=== PATIENT | male | born 1935 | race Caucasian/White ===

== ENCOUNTER 2016-09-03 00:09 | Inpatient (IN) | payer MEDICARE, BC ==
[~2016-09-03] VITALS: Ht 170.2 cm; Wt 116.7 kg
--- NOTE | ~2016-09-03 | CON ---
PATIENT'S NAME: WINTER DYE [facility] AGE: 81 Y [address] ROOM: G6306 [place], [place] [address] LOCATION: GPCU ADMIT DATE: 09/03/2016 Consultation DISCHARGE DATE: FAMILY PHYSICIAN: Cain Burch MD ATTENDING PHYSICIAN: LES PACKER DATE OF CONSULTATION: 09/03/2016 REFERRING PHYSICIAN: Nena Cuevas MD REASON FOR CONSULTATION: LLOYD on CKD. 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 Shin once in the past, refused left nephrectomy, baseline creatinine in April 2015 around 1.7 range, but more recently in 1.9 to 2.1, admitted recently with an obstructive episode in August 2016, status post left ureteral stent placement, now admitted with atypical chest pain and mild shortness of breath. Creatinine on admission was 2.4. Nephrology consultation has been called for LLOYD on CKD. As mentioned above, the creatinine of this patient was 1.7 till April 2016, at that time, he had obstructive episode, creatinine went up to 7.9, after which, the patient started to improve. The last creatinine before discharge in July 2016 was 2.4, and the last creatinine, which was done yesterday at outside facility was 2.4. The patient was subsequently started with some IV fluid because of possible dehydration and also possible need for left heart catheterization for GLORIA prophylaxis. Creatinine today is 2.1, urine output is reasonable, although has not been properly documented in the chart. He currently denies any significant chest pain; however, the pain was there and started day before yesterday, which was nonexertional, radiated to his left shoulder, kind of sharp in intensity, and substernal in location. He went for the stress test today this morning; however, the second part of the stress test is still pending, and plan for cardiac cath if the stress test is relatively abnormal. Regarding genitourinary system, he is completely asymptomatic. He denied any urinary urgency, frequency, hesitancy, or dysuria. He had a ureteral stent placed by Dr. Cesar on the last admission when he had this obstructive episode, and since then, he had never seen Dr. Johnson or Dr. Cesar. However, he said that he is making good amount of urine at home, however, has no other issues. REVIEW OF SYSTEMS: GENERAL: No fever. No chills or rigor. HEENT: No sore throat. No sinus congestion. CVS: The patient complained of chest pain, which was substernal in origin, sometimes radiating to the left shoulder, nonexertional, currently almost pain free. No complaint of shortness of breath. No exertional dyspnea. No orthopnea, PND, or palpitation. RESPIRATORY: No shortness of breath. No cough. No wheezing. GENITOURINARY: No pain with urination. No increased frequency. No nocturia. GASTROINTESTINAL: No abdominal pain. No abdominal distention. No nausea or vomiting. NEUROLOGIC: No weakness. No seizures. SKIN: No rash. No itching. ALLERGIES: No seasonal allergy. No hayfever. ENDOCRINE: No heat intolerance. No cold intolerance. PSYCHIATRIC: No sadness. No crying spells. No history of panic attack. 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 Shin once. PAST SURGICAL HISTORY: As listed above including right nephrectomy. FAMILY HISTORY: Mother had diabetes but no significant history of renal disease or dialysis in the family. SOCIAL HISTORY: Chronic smoker for at least 40 years. He used to smoke a pack a day, now half a pack a day currently. Denies any alcohol or significant IV drug abuse. CURRENT MEDICATIONS: 1. Heparin IV per protocol. 2. Normal saline at rate of 75 mL/h. 3. Aspirin 81 mg p.o. daily. 4. Lipitor 80 mg p.o. q.h.s. 5. Mucomyst 1200 mg p.o. b.i.d. 6. NicoDerm patch 21 mg transcutaneous daily. 7. Morphine 1 to 2 mg IV q.3 hours p.r.n. for pain. 8. Zofran 4 mg IV q.6 hours p.r.n. for pain. 9. Heparin 5000 units subcutaneously. PHYSICAL EXAMINATION: VITAL SIGNS: Blood pressure 156/78, respiratory rate 16, pulse 95, afebrile, saturating at 96% on 2 L of nasal cannula. GENERAL: Not in apparent distress. HEAD: Moist mucous membranes. Bilateral PERRLA, EOMI. NECK: No JVD, thyromegaly or lymphadenopathy. CVS: S1 and S2 normal, regular rate and rhythm. No murmur, rub, gallop. CHEST: Bilateral air entry equal. No wheeze or rales. ABDOMEN: Soft, nontender, nondistended. Bowel sounds present. EXTREMITIES: No cyanosis, clubbing, jaundice. No dependent edema. MUSCULOSKELETAL: No limitation of range of motion. SKIN: No pallor, cyanosis, icterus. CLOTHES DRIER REPAIRER: Alert and oriented x3. No gross findings. PATIENT'S NAME: WINTER DYE [facility] AGE: 81 Y [address] ROOM: [place] [address] LOCATION: GPCU ADMIT DATE: 09/03/2016 Consultation DISCHARGE DATE: FAMILY PHYSICIAN: Cain Burch MD ATTENDING PHYSICIAN: LES PACKER LABORATORY DATA: Troponin 0.261 to 0.491, CPK 108 to 129. CBC: WBC 6.2, hemoglobin 14.4, platelet 168. Chemistry: Sodium 139, potassium 4.4, chloride 105, bicarb 24, BUN 36, creatinine 2.1, calcium 8, glucose 121, magnesium 2.3. GFR 31. Lipid panel: Triglyceride 239, cholesterol 150, HDL 47, LDL 56. PTT 34, INR 1, PT 10. UA: Specific gravity 1.015, pH 6, leukocyte 100, negative nitrite, trace protein, glucose negative, ketone negative, urobilinogen negative, bilirubin negative, 250 blood, wbc 2 to 5, few bacteria. Urine osmolality 609. CK-MB 2.1 to 2.8. ASSESSMENT AND PLAN: 1. 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 Creatinine at baseline was 1.7 till April 2016, however, after obstructive episode, the creatinine never reached back to his baseline. Last creatinine before discharge was 2.4, which was same as yesterday. However, the patient has reported that his intermediate creatinine at his hometown was 1.92. Creatinine came down slightly with volume expansion since yesterday, now it is 2.1. The patient is making good amount of urine. No urinary symptoms. However, with history of obstruction in the past and solitary kidney and left ureteral stent, we will get an ultrasound to rule out any obstructive etiology. 2. Atypical chest pain. The patient is getting a stress test today. We will plan for cardiac cath if the stress test is abnormal. If we plan for cardiac cath, we will give sodium bicarb 3 mL/kg about 350 mL 3 hours prior to the procedure. We have already started Mucomyst 1200 mg p.o. b.i.d. for 4 doses with one dose preprocedure. As per the Usshil risk score, the risk for getting contrast-induced nephropathy for his profile is about 15% with a risk of dialysis about 1% to 2%. Sushil risk score is not properly substantiated or evident as best, but this is the best score we have at this point for predicting contrast-induced nephropathy in the patients with chronic kidney disease. 3. Renal cell carcinoma, status post right nephrectomy, still has a left renal mass with left renal vein invasion, has seen Dr. Shin once. He refused nephrectomy before, however, does not want to see Dr. Shin again. The patient has been encouraged to follow up with an oncologist for his left renal mass. If there is any obstruction in the renal ultrasound or increase in the left- sided hydronephrosis, the patient needs an urgent urology consultation for removal of the left ureteral stent and replacing it with a new stent. It is important as the patient has profoundly infiltrated kidney and if the patient already has significantly advanced chronic kidney disease from prior baseline. Thank you for allowing me to participate in this patient's care. We will closely monitor the patient's progress along with you. CAILIN REESE MD /alejandral /[id number] d: 09/03/[id number] t: 09/08/16 1629, CONSULTATION REPORT
--- NOTE | ~2016-09-03 | ESTC ---
Cardiac Perfusion Imaging Demographics Patient Name HARDIK Kaur Gender Male Patient Number [id number] Race Visit Number [id number] Ethnicity Corporate ID Room Number G6306 Accession Number [id number] Height 67 inches Date of 1935 Weight 268 pounds Interpreting Mason Barrett Date of study 09/03/2016 Physician CNC Supervising /SANDEEP Martinez APRN NM Technologist Ordering Physician Mason Barrett Stress Larry Alcala MD instrument room technician RDCS, RVT Stress ECG Reading Dilip Martinez APRN Nurse Roxann Cardoza RN Physician Procedure Procedure Type: Nuclear Stress Test:Cardiolite Stress Test Procedure Start time: 09/03/2016 10:45 Indications: Chest pain. Risk Factors The patient risk factors include:obesity, Current/Recent(w/in 1 year) tobacco use, family history of premature CAD appeared at age 68 and renal failure. Conclusions Summary Small inferior apical moderate ischemia. Mildly dilated LV. TID:1.48 LVEF:70%. Normal WM. Stress Protocols Resting ECG Sinus rhythm with 1st degree AVB Pre-stress physical exam: Patient assessed by Vadim DEJESUS prior to testing. Chest - CTA Cardio - RRR, S1, S2 Predicted HR: 140 bpm HR response: Appropriate BP response: Appropriate ECG Findings No ECG changes suggestive of ischemia. Arrhythmias No rhythm abnormality. Symptoms Shortness of breath. Complications Procedure complication: None. Stress Interpretation Appropriate hemodynamic response to Lexiscan. No significant ST-T wave changes with Lexiscan. ECG portion is negative for ischemia by diagnostic criteria. Will correlate with nuclear images. Imaging Results High risk findings Summed scores - LV dilatation (TID) - Summed stress score: 8 - Summed rest score: 1 - Summed difference score: 7 Stress ejection Ejection fraction:70 % EDV :152 ml ESV :45 ml Stroke volume :107 ml LV mass :175 gr LV size:Enlarged LV Normal LV function Imaging Protocols Rest Stress Isotope:Tc99m Sestamibi IV Isotope: Tc99m Sestamibi IV Isotope dose:15.4 mCi Isotope dose:44 mCi Date:09/03/2016 09:32 Date:09/03/2016 11:25 Technique: SPECT Technique: Gated Supine SPECT Supine IV remains in place after procedure. Scan Time:30 minutes post injection Scan Time:45-60 minutes post injection Procedure Medications - Regadenoson (Lexiscan) 0.4 mg IV over 10-15 sec. I.V. 0.4 mg. Medical History Admission Data Admission date: 09/03/2016 Admission Time: 01:03 Hospital Status: Inpatient. Signatures dtt: Nena Cuevas dtd: 09/03/16 1045 Physician Self Edit
--- NOTE | ~2016-09-03 | HP ---
PATIENT'S NAME: WINTER DYE [facility] AGE: 81 Y [address] ROOM: [address] [place], [place] [address] LOCATION: GPCU ADMIT DATE: 09/03/2016 History & Physical DISCHARGE DATE: FAMILY PHYSICIAN: Cain Burch MD ATTENDING PHYSICIAN: LES PACKER DATE OF SERVICE: CHIEF COMPLAINT: Bilateral shoulder and elbow pain for few days followed by radiation to substernal area since last night. HISTORY OF PRESENT ILLNESS: This is an 81-year-old male who states that he has been experiencing bilateral shoulder and elbow pain for the last few days and last night around 9 p.m. he started experiencing substernal chest pain when he was trying to go to sleep. He describes as pressure-like pain and intensity 7 to 8/10. The substernal chest pain is constant and does not radiate. He has some slight dyspnea when he had the chest pain, but the dyspnea went away shortly. He has never experienced this kind of chest pain before and he denies any history of gastroesophageal reflux disease or anxiety disorder. He also does not lift anything heavy and he does not understand why he has this bilateral shoulder and elbow pain which ultimately radiated to substernal area. Because of the persistent substernal chest pain, bilateral shoulder and elbow pain, he went to ER at [facility] in [place] for evaluation. Over there, troponin, CK and CK-MB were performed and they were all within normal limits after one set. He was found to have creatinine of 2.4 and GFR of 26. When I compare to our [facility], his last kidney function that we have on file was in 07/23/2016, it was also creatinine 2.4 and GFR was also 26. EKG was performed and it showed T-wave inversion in inferior leads. No evidence of ST elevation or ST depression and showed sinus rhythm, heart rate of 70 beats per minutes with a first-degree AV block of [place] interval 244 milliseconds, QRS of 96 milliseconds, QTc 436 milliseconds. When I compared to the prior EKG on our [facility] back in 07/20/2016, also showed the same finding with T-wave inversion in inferior leads. Over there, the patient was given nitroglycerin sublingual twice and a full dose aspirin. Chest pain went down from 8 to 6/10. He was given morphine after that and chest pain resolved. Due to the concern for possible unstable angina, the patient was transferred here for higher level of care. PATIENT'S NAME: WINTER DYE [facility] AGE: 81 Y [address] ROOM: [address] [place], [place] [address] [facility] ADMIT DATE: 09/03/2016 History & Physical DISCHARGE DATE: FAMILY PHYSICIAN: Cain Burch MD ATTENDING PHYSICIAN: LES PACKER REVIEW OF SYSTEMS: As mentioned in the history of present illness. All other systems reviewed, negative except those mentioned in history of present illness. PAST MEDICAL HISTORY: 1. Chronic kidney disease, stage III to IV. 2. Bilateral renal carcinoma status post right total nephrectomy and left kidney likely has carcinoma as well, currently is being followed up closely with the CT scan periodically. 3. The patient denies any other past medical history. ALLERGIES: HE HAS ALLERGY TO [place], (WHICH CAUSES PRURITUS). SOCIAL HISTORY: The patient is an active cigarette smoker about half pack per day for the last 40 years. He denies any alcohol or any illegal drug use. PAST SURGICAL HISTORY: Status post right total nephrectomy. FAMILY HISTORY: Father from gastric cancer at age 66-year-old and mother from at age 90 from old age, cause that he could not remember. He has 2 brothers who in the 70s from myocardial infarction. No premature coronary artery disease in either parents. PHYSICAL EXAMINATION: VITAL SIGNS: At the time of my dictation, blood pressure 131/83, heart rate 57, respiration 18, temperature 97.6, saturation 97% on 2 L nasal cannula. Pain 2/10 in the right shoulder. GENERAL APPEARANCE: Alert and oriented x3, in no acute distress. HEENT: Anicteric sclerae. Pupils equally round and reactive to light. Extraocular muscles intact. Nasal turbinates are normal bilaterally. Moist oral mucosa. NECK: No JVD. No carotid bruit. CARDIOVASCULAR: Regular rate and rhythm. Normal S1, S2. No murmur, no rubs, no gallops. RESPIRATORY: Clear. ABDOMEN: Obese, soft, nontender, nondistended, normal bowel sounds, no hepatosplenomegaly. EXTREMITIES: No edema in upper or lower extremities. NEUROLOGICAL: Nonfocal. SKIN: No rash. No ulcer. No cyanosis. MUSCULOSKELETAL: No joint pain. No muscle pain. Range of motion intact. PATIENT'S NAME: WINTER DYE [facility] AGE: 81 Y [address] ROOM: [address] [place], [place] [address] LOCATION: GPCU ADMIT DATE: 09/03/2016 History & Physical DISCHARGE DATE: FAMILY PHYSICIAN: Cain Burch MD ATTENDING PHYSICIAN: LES PACKER LABORATORY DATA: Troponin here in our facility the first set was negative, less than 0.04, second set was 0.261. CPK 212 then 108. CK-MB 2.1 then 2.8. CBC from the outside facility today on 09/02/2016, showed a white blood cell of 7, hemoglobin 15.1, hematocrit 45.6, platelets 207. INR 1.0, PTT 34.2, troponin 0.006. BNP 10.6. CPK 85, CK-MB 10. Amylase 59, lipase 41. Glucose 138, sodium 141, potassium 4.0, chloride 102, CO2 24, BUN 39, creatinine 2.4, AST 23, ALT 36, alkaline phosphatase 64, calcium 8.4, albumin 4.0, total protein 6.7, GFR 26, magnesium 2.0, total bilirubin 0.6. EKG performed from the outside facility on 09/02/2016 in [place] shows sinus rhythm, heart rate of 70 beats per minute, with T-wave inversion in inferior leads. QTc 436 milliseconds, QRS 96 milliseconds, NY 244 milliseconds, first-degree AV block heart rate 70 beats per minute. No acute ST-elevation or ST-depression. When compared to the prior EKG in [facility] in 07/20/2016, also showed T inversion in inferior leads and first-degree AV block. Repeat EKG here in our facility upon arrival, on 07/03/2017, at 2:19 a.m. shows sinus rhythm, heart rate of 54 first-degree AV block with a NY 291 milliseconds and T inversion in inferior leads. No acute ST-elevation or ST-depression. Chest x-ray was performed at the outside facility, it was unremarkable. ASSESSMENT: 1. NSTEMI: N.P.O. Cycle cardiac enzymes every 6 hours. EKG in the morning. Heparin drip per ACS protocol. Aspirin daily 81 mg. Lipitor 80 mg 1 dose right now and then daily. No beta cece due to first-degree AV block. If chest pain recurs, will start nitroglycerin drip. Cardiology consult in the morning. Check blood work including hemoglobin A1c and lipid panel in the morning. Keep the potassium more than 4 and magnesium more than 2. IV fluids normal saline at 75 mL/h for maintenance while n.p.o. and also for the CKD, stage IV. IV Zofran p.r.n. for nausea and vomiting. The patient is a smoker, he does have a risk factor for coronary artery disease and depending on his overnight course including recurrence of chest pain, troponin trend, and also echo in the morning, we can decide about doing a Lexiscan or cardiac catheterization. Further plan depends on clinical course. 3. Regarding his CKD stage IV: I will give him IV fluids with normal saline 75 mL/h. Currently, he is not acidotic. Check a renal panel in the morning. I will start the patient on the contrast-induced nephropathy protocol with Mucomyst and sodium bicarbonate. Consult nephrology in AM to optimize his CKD4 in anticipation of possible cardiac catheterization. PATIENT'S NAME: WINTER DYE [facility] AGE: 81 Y [address] ROOM: [place] [address] [facility] ADMIT DATE: 09/03/2016 History & Physical DISCHARGE DATE: FAMILY PHYSICIAN: Cain Burch MD ATTENDING PHYSICIAN: LES PACKER 5. Deep vein thrombosis prophylaxis: On heparin drip. Time spent in care on the day of admission, 35 minutes including chart review, interviewing, examining the patient, addressing all the questions and concerns the patient had and going over the plan of care with the patient. LES PACKER MD CC/modl /[id number] D: 341 T: HISTORY & PHYSICAL
--- NOTE | ~2016-09-03 | ECHO ---
Transthoracic Echocardiography Report (TTE) Demographics Patient Name WINTER DYE Date of Study 09/03/2016 Patient Number [id number] Visit Number [id number] Date of 1935 Room Number G6306 Gender Male Number Age 81 year(s) Referring Kiersten Vicente Steam Plant Operator Korin Frost RVT Physician DO Astrid Foote MD Physician Interpreting [employer] Pharmacist Physician Andrew Brooks MD Supervising Ordering Astrid Foote MD, MD/MLP Physician Nurse Stress Works Manager Conclusions Contractility Score Summary Normal Left Ventricular contractility was noted. Summary Normal LV/RV size and systolic function. The estimated left ventricular ejection fraction is 55%. Diastolic assessment reveals Grade I diastolic dysfunction. IVC measures 1.44 cm with inspiratory collapse. Mild mitral annular calcification. 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 No significant valvular abnormalities. No evidence of pericardial effusion. Procedure Type of Study TTE procedure:2D Echocardiogram, M-Mode, Doppler , Color Doppler. Procedure Date Date: 09/03/2016 Start: 03:50 PM Study Location: Inpatient Portable Technical Quality: Limited visualization due to body habitus. Indications:Chest pain. Appropriate Use Criteria: 9 Patient Status: Routine HR: 61 bpm BP: 131/83 mmHg M-Mode/2D Measurements LV Diastolic Dimension: 4.44 cm LV Systolic Dimension: 3.21 cm Cardiac Output: 5.13 l/min AO Root Dimension: 3.6 cm LVOT: 2.1 cm LVOT VTI: 24.3 cm LV Stroke volume: 84.12 ml TDI-S': 13.7 cm/s Doppler Measurements AV Peak Velocity: 1.24 m/s MV Peak E-Wave: 0.67 m/s AV Peak Gradient: 6.15 mmHg MV Peak A-Wave: 1.19 m/s AV Mean Gradient: 3 mmHg MV E/A Ratio: 0.56 LVOT Peak Velocity: 1.05 m/s MV P1/2t: 145 msec PV Peak Velocity: 0.87 m/s E' Septal Velocity: 0.04 m/s PV Peak Gradient: 3.02 mmHg E' Lateral Velocity: 0.03 m/s A' Septal Velocity: 0.1 m/s A' Lateral Velocity: 0.1 m/s Findings Left Ventricle Diastolic assessment reveals Grade I diastolic dysfunction. Right Ventricle Normal right ventricle structure and function. Left Atrium Normal left atrial size. Right Atrium IVC measures 1.44 cm with inspiratory collapse. Mitral Valve Mild mitral annular calcification. Aortic Valve Normal aortic valve structure and function. Tricuspid Valve Normal tricuspid valve structure and function. Pulmonic Valve The pulmonic valve is not well visualized. Pericardial Effusion No evidence of pericardial effusion. Miscellaneous Ascending aorta diameter is dilated 3.9 cm. Pleural Effusion No evidence of pleural effusion. Contractility Score LV regional wall motion:(0-Non visualized 1-Normal 2-Hypokinesis 3-Akinesis 4-Dyskinesis 5-Aneurysm) Signature dtt: SYLVIE STALLINGS dtd: 09/03/16 [id number] Physician Self Edit
--- NOTE | ~2016-09-03 | CON ---
PATIENT'S NAME: WINTER CHAMBERS [facility] AGE: 81 Y [address] ROOM: [place] [address] LOCATION: GPCU ADMIT DATE: 09/03/2016 Consultation DISCHARGE DATE: FAMILY PHYSICIAN: Cain Burch MD ATTENDING PHYSICIAN: LES PACKER DATE OF CONSULTATION: 09/03/2016 REFERRING PHYSICIAN: Nena Cuevas MD IDENTIFICATION: An 81-year-old male patient. HISTORY OF PRESENT ILLNESS: Mr. Chambers was hospitalized in the middle of the night from [place] with bilateral shoulder and elbow pain, which has radiated to the center of the chest, to the substernal area, and lasted several hours yesterday. It has been intermittent for the past few days. When he went to the local emergency room, nitroglycerin was administered, which seemed to have helped him a little bit. The patient has negative troponins, EKG, CPK-MB. As his pain continued to be there, he was sent over even though the pain had gotten better down to about 2 on a scale of 1 to 10. His kidney function has been poor. He has not had any history of hypertension, type 2 diabetes, elevated cholesterol, or tobacco abuse. There is no prior history of ND. He is currently smoking though. There is no premature coronary artery disease in the family. There is no history of rheumatic fever, congestive heart failure, dilated or enlarged heart or any diagnosed arrhythmias. MEDICATIONS: His current list of medications on presentation include no medications. ALLERGIES: FENTANYL. 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 He has bilateral renal carcinoma, and his right kidney has been removed. His left kidney is being followed by Dr. Shin. SOCIAL HISTORY: The patient is a smoker. He denies abusing alcohol. His appetite and weight are stable. Sleep is poor. FAMILY HISTORY: No premature coronary artery disease. REVIEW OF SYSTEMS: PATIENT'S NAME: WINTER CHAMBERS [facility] AGE: 81 Y [address] ROOM: [place] [address] LOCATION: GPCU ADMIT DATE: 09/03/2016 Consultation DISCHARGE DATE: FAMILY PHYSICIAN: Cain Burch MD ATTENDING PHYSICIAN: LES PACKER A 12-point review of systems revealed that his appetite has not been the best lately. He has not been drinking enough lately. PHYSICAL EXAMINATION: VITAL SIGNS: On examination, his blood pressure is 130/80, heart rate is in the 60s, respiration is 18, afebrile. His rhythm is regular. Oxygen saturation is 97% on 2 L. HEENT: Normal. NECK: Supple with no JVD, thyromegaly, lymphadenopathy, or carotid bruit. PMI is not well located. First and second sounds are regular. There are no added sounds or murmurs. CHEST: Clear to auscultation. ABDOMEN: Obese, soft. Bowel sounds are normally present. EXTREMITIES: Reveal no edema. LABORATORY DATA: His troponin, which was negative to begin with at 0.040, has gone up to 0.261, and later to 0.491. Given his renal function abnormalities, I am not sure how much clearance should be paid to this troponin elevation. He is currently pain free. RECOMMENDATIONS: We will proceed with an echocardiogram and Lexiscan Cardiolite study and followup after that. In the meantime, given his renal failure, we will have the repairer handtools involved before proceeding with any necessity for cardiac catheterization. MD ODALYS DAVIS/santhosh /[id number] d: 09/03/16 2349 t: 09/07/16 1410, CONSULTATION REPORT
--- NOTE | ~2016-09-03 | DS ---
PATIENT'S NAME: WINTER DYE [facility] AGE: 81 Y [address] ROOM: [address] [place], [place] [address] LOCATION: GPCU ADMIT DATE: 09/06/2016 Discharge Summary DISCHARGE DATE: 09/06/2016 FAMILY PHYSICIAN: Cain Burch MD ATTENDING PHYSICIAN: Heriberto Resendiz FINAL DIAGNOSES: 1. Elevated troponin. 2. Stage III chronic kidney disease. 3. Bilateral renal cell carcinoma. 4. Ascending thoracic aneurysm, 4.4 cm. Please see the history and physical dictated by Dr. Resendiz for details of admission. LABORATORY DATA: On admit sodium 139, at discharge 139; potassium on admit was 4.4, discharge 4.4; chloride on admission was 105, discharge 106; BUN on admission was 36, discharge 36; creatinine on admission 2.4, discharge 1.8. Cholesterol 150, triglycerides 239. Troponin I on admission was 0.261, it was as high as 0.491, and at discharge is 0.35. Hemoglobin A1c 6.6. On admission, white blood cell count 6.2, hemoglobin 14.4, hematocrit 43.1, platelet count 168. Urinalysis on admission had packed RBCs. RADIOLOGIC DATA: Ultrasound of the kidneys on admission showed a solid left renal mass of 3.2 cm, left renal cyst 1.[address] scan of the thoracic spine showed an ascending thoracic aneurysm, fusiform dilation, 4.4 cm at the widest, had a stable left renal mass and left adrenal nodule, surgically absent right kidney. HOSPITAL COURSE: The patient was admitted after presenting with chest pain. The patient was treated like an acute coronary syndrome. He was put on heparin and nitroglycerin. Cardiac enzymes were obtained. Dr. Cuevas was asked to see the patient in Cardiology consultation. A CT scan of the chest was obtained to evaluate for the chest pain. Dr. Cuevas did see him and he was concerned that he may have had a non-ST elevated HI and felt that it would be best to proceed with a Lexiscan and ut to wean off the nitroglycerin. Nephrology was asked to see the patient. His creatinine was slightly elevated on admission. The patient's cardiac enzymes were trended. The troponin did go up and then did proceed to go down. An echocardiogram showed he had a normal EF, mildly dilated aortic root. Once the patient was hydrated, his kidney function had returned to the baseline. The nitroglycerin drip was stopped. The patient did have a stress test that was read as a small inferior apical mild ischemia. The decision was made that he would not have a cardiac catheterization, that he would do medical management. The CT scan of the chest did show that he had an ascending thoracic aneurysm of 4.4 cm. He was initiated on oral nitroglycerin and put on a statin on discharge. He is discharged to home with followup with Dr. Burleson in 10 to 14 days. PATIENT'S NAME: WINTER DYE [facility] AGE: 81 Y [address] ROOM: [place] [address] LOCATION: GPCU ADMIT DATE: 09/06/2016 Discharge Summary DISCHARGE DATE: 09/06/2016 FAMILY PHYSICIAN: Cain Burch MD ATTENDING PHYSICIAN: Heriberto Resendiz DISCHARGE MEDICATIONS: His medications will be, 1. Lipitor 80 mg daily. 2. Aspirin 81 mg daily. 3. Imdur 30 mg daily. PROGNOSIS: Overall prognosis at discharge was good. BARRIE RUELAS MD LAW/modl /[id number] CC: MD Clinton Donovan MD d: 09/07/16 0356 t: 09/12/16 1631, DISCHARGE SUMMARY
[~2016-09-03 00:09] MED LIST: ACETYLCYST200 MG/11 PO; COLACE100 MG PO
--- NOTE | 2016-09-03 02:17 | NUR ---
After eating supper, pt began experiencing chest pain, he took tylenol and had no relief at which time he went in to the ED at [facility]. He received ASA and morphine which helped. Cardiac enzymes and EKG were negative and he was then transferred here. Pt is A/Ox3, pleasant. VSS. No complaints of chest pain upon arrival. He has a history of renal cancer to which he has has a R) nephrectomy and had a stent placed to the L side after a mass was found to be blocking urine outlet. Pt takes no home medications. Calm and cooperative with admission.
[2016-09-03 03:15] LABS: BASOPHIL % 0.5 %; EOSINOPHIL # 0.1 K/uL (0.0-0.5); EOSINOPHIL % 0.9 %; HEMATOCRIT 45.4 % (33.0-50.0); IMMATURE GRANULOCYTE % 0.5 %; LYMPHOCYTE # 0.8 K/uL (0.8-4.0); LYMPHOCYTE % 10.1 %; MCV 90.8 fl (83.0-98.0); MONOCYTE # 0.6 K/uL (0.0-1.0); MONOCYTE % 7.2 %; MPV 10.6 fl (9.4-12.4); NEUTROPHIL # (ANC) 6.2 K/uL (1.4-9.0); NEUTROPHIL % 80.8 %; NRBC % 0 /100WBC (0-0.00); PLATELET COUNT 185 K/uL (150-450); RDW-CV 14.5 % (11.9-14.6); WBC 7.6 K/uL (4.0-11.0)
[2016-09-03 03:35] LABS: PROTIME 10.1 SECONDS (9.6-11.1)
--- NOTE | 2016-09-03 04:25 | NUR ---
Significant events: Pt A/Ox3. VSS, SBP 130's, HR 50-60's, on RA. No chest pain upon arrival but complained of slight tinge to R) shoulder later in morning. Up to bathroom. Cardiology to see this AM for possible stress test or heart cath. To have bicarb started 1 hour before procedure. NPO. IV to bilateral hands. EKG and enzymes to be done this AM along with echo.
[2016-09-03 07:07] LABS: HEMATOCRIT 43.1 % (33.0-50.0); HEMOGLOBIN 14.4 g/dL (11.0-16.0); MCH 30.1 pg (27.0-34.0); MCHC 33.4 gm/dL (32.0-36.5); MCV 90.2 fl (83.0-98.0); MPV 9.9 fl (9.4-12.4); RBC 4.78 M/uL (3.50-5.50); RDW-CV 14.3 % (11.9-14.6); WBC 6.2 K/uL (4.0-11.0)
[2016-09-03 09:08] LABS: CREATININE 2.1 mg/dL (0.6-1.3)
[2016-09-03 09:13] LABS: ANION GAP 14.4 (10.0-19.0); MAGNESIUM 2.3 mg/dL (1.3-2.6); POTASSIUM 4.4 mMol/L (3.7-5.1)
[2016-09-03 13:47] LABS: BILIRUBIN URINE NEGATIVE (NEGATIVE); BLOOD URINE 250 /UL (NEGATIVE); COLOR URINE YELLOW (YELLOW); GLUCOSE URINE NEGATIVE (NEGATIVE); KETONE URINE NEGATIVE (NEGATIVE); LEUKOCYTES URINE 100 /UL (NEGATIVE); NITRITE URINE NEGATIVE (NEGATIVE); PROTEIN URINE 30 mg/dL (NEGATIVE); SPEC GRAVITY URINE 1.015 (1.003-1.035); TURBIDITY URINE CLEAR (CLEAR); UROBILINOGEN URINE NORMAL (NORMAL)
[2016-09-03 14:16] LABS: EPITHELIAL URINE 0-2 #/HPF (NEGATIVE); RBC URINE PACKED FIELD #/HPF (NEGATIVE)
[2016-09-03 14:17] LABS: BACTERIA URINE FEW (NEGATIVE)
--- NOTE | 2016-09-03 17:02 | NUR ---
PATIENT HAD STRESS TEST AND ULTRASOUND OF KIDNEYS TODAY. HEPARIN GTT CONTINUED. NEPHROLOGY CONSULT, AND DR PAZ NOTIFIED OF ADMISSION TO HOSPITAL. URINE SAMPLE SENT FOR TESTING. PATIENT STATES HAS NO C/O PAIN. VSS, RA. BICARB ORDERED ON HOLD TO GIVE IF PROCEDURE WITH CONTRAST IS ORDERED.
[2016-09-04 03:39] LABS: ALBUMIN 3.6 gm/dL (3.5-5.0); ANION GAP 14.2 (10.0-19.0); CALCIUM 8.3 mg/dL (8.5-10.5); CREATININE 1.7 mg/dL (0.6-1.3); PHOSPHORUS 3.2 mg/dL (2.5-4.9); POTASSIUM 4.2 mMol/L (3.7-5.1)
--- NOTE | 2016-09-04 05:19 | NUR ---
Oreinted x 3. Pleasant and cooperative. Some anxiety r/t possible heart cath and having to lay still after it. VSS. LS clear/diminished on RA. SBA. C/o pain in bilateral upper arms, but then fell asleep. C/o some pain under lower ribcage r/t US. Voiding well. Urine pink tinged- patient has a urinary stent. Denies nausea. aPTT was 51 @ 0400. Adjustment made, now heparin infusing at 1500units/hour. Next aPTT ordered for 1010. US showed possible aortic aneurysm, will have a CT this morning. Stress test indicative of possible blockage. Possible heart cath- needs to be cleared by nephro.
--- NOTE | 2016-09-04 17:40 | NUR ---
Significant Event:Patient has been up in room ad marlene. In good spirits. CT done without contrast of chest. Mucomyst dc'd, is not getting any dye. Prune Juice given for c/o constipation. Started on Isoorbide 30 mg PO Q day. Appetite good. Heparin dc'd. Follow up:Awaiting CT results, ? heart cath in next day or two
--- NOTE | 2016-09-05 03:48 | NUR ---
SIGNIFICANT EVENT: PATIENT A/O X 3. UP TO BATHROOM AD SARAH. SHOWERED LAST NIGHT. HAS HAD RIGHT ARM PAIN AND INDIGESTION THRUOGOUT SHIFT. PATIENT STATES HE TAKES TUMS AT HOME WHEN HE GETS INDIGESTION TO HELP SYMPTOMS GO AWAY. PAIN MEDS AND SODA AND CRACKERS WERE OFFERED BUT PATIENT DECLINED STATING IT WASN'T THAT BAD. PATIENT REFUSED HIS HS DOSE OF LIPTOR SAYS HE WILL NOT TAKE THE MEDICATION THE SIDE EFFECTS ARE A LOT.
[2016-09-05 04:40] LABS: ALBUMIN 3.5 gm/dL (3.5-5.0); ANION GAP 14.5 (10.0-19.0); CALCIUM 8.2 mg/dL (8.5-10.5); CREATININE 1.9 mg/dL (0.6-1.3); PHOSPHORUS 3.2 mg/dL (2.5-4.9); POTASSIUM 4.5 mMol/L (3.7-5.1)
--- NOTE | 2016-09-05 16:11 | NUR ---
D:Dr. Johnson made rounds around 1240 today. He wan't happy with Bp being the 90-100's. He wanted Dr. Avila called and notified about SBP and wanted the Imdur dc'd. Dr. Johnson feels for Cr that SBP goal should be >120. He wanted the Imdur dc'd by Dr. Avila. At 1355, Dr. Avila was notified and he did dc the Imdur. At 1445, SBP in the 110's. Patient up ad marlene in room. P:Monitor BP , and cardiac and renal status
--- NOTE | 2016-09-05 17:23 | NUR ---
Significant Event:Patient has been up ad marlene in room, no c/o chest pain. Imdur dc'd for Cr going up from 1.7 to 1.9. SBP in 90-1100's. Dr. Johnson would like up to keep it in the 120's. Did orthostatic BP and charted in progress notes. Are negative. Remains on room air. Follow up:NPO after MN for possible cath in AM
--- NOTE | 2016-09-06 04:19 | NUR ---
Significant event: Patient A/O x 3. Up in room ad marlene. Showered last night. Patient had been refusing lipitor but was ok taking it last night. On RA during the day and 2L NC at night. No chest pain noted. NPO since midnight for possible heart cath this a.m. with
[2016-09-06 04:40] LABS: ALBUMIN 3.5 gm/dL (3.5-5.0); ANION GAP 14.4 (10.0-19.0); CALCIUM 8.5 mg/dL (8.5-10.5); CREATININE 1.8 mg/dL (0.6-1.3); PHOSPHORUS 3.3 mg/dL (2.5-4.9); POTASSIUM 4.4 mMol/L (3.7-5.1)
[2016-09-06] MEDS ORDERED: ASPIRIN (CHILDR81 MG PO (10:35)
[2016-09-06] MEDS ORDERED: LIPITOR40 MG PO (10:37)
[2016-09-06] MEDS ORDERED: IMDUR30 MG (10:39)
--- NOTE | 2016-09-06 11:45 | NUR ---
DISMISSAL ORDERS RECIEVED. REVIEWED WITH THE PATIENT AND HIS SON ALL D/C INFORMATION INCLUDING MEDICATIONS, FOLLOW-UP APPT, INSTRUCTIONS, AND CARES. PIV D/C'D AND CATHETER INTACT. HE REFUSED BOTH OF HIS VACCINES. WILFRED PRINTOUTS GIVEN ON ALL NEW MEDS, HEART HEALTHY AND LOW CHOLESTEROL DIET INFORMATION, AND SMOKING CESSATION INFORMATION. TAKEN VIA ACID LEVELER AND W/C TO THE FRONT ENTRANCE OF THE HOSPITAL AND HIS SON TO DRIVE HIM HOME.
== END 2016-09-06 11:45 | disposition disaster alternative care site (69) | DRG 281 ==
LOC: GPCU 00:09
PROVIDERS: Internal Medicine Nephrology; ADMIT Internal Medicine
DX: I21.4 Non-ST elevation (NSTEMI) myocardial infarction (principal); N18.4 Chronic kidney disease, stage 4 (severe); I71.2 Thoracic aortic aneurysm, without rupture; N17.9 Acute kidney failure, unspecified; E86.0 Dehydration; Z68.41 Body mass index [BMI] 40.0-44.9, adult; N28.1 Cyst of kidney, acquired; F17.210 Nicotine dependence, cigarettes, uncomplicated; I12.9 Hypertensive chronic kidney disease with stage 1 through stage 4 chronic kidney disease, or unspecified chronic kidney disease; Z90.5 Acquired absence of kidney; Z85.528 Personal history of other malignant neoplasm of kidney; I20.0 Unstable angina; E66.9 Obesity, unspecified
CPT/HCPCS: A9500; G0378; J0280; J1644; J2785; J7030; J7060

== ENCOUNTER 2016-10-16 23:35 | Inpatient (IN) | payer MEDICARE, BC ==
[~2016-10-16] VITALS: Ht 170.2 cm; Wt 116.1 kg
--- NOTE | ~2016-10-16 | CON ---
PATIENT'S NAME: WINTER DYE [facility] AGE: 81 Y [address] ROOM: [id number] [place], [place] [address] LOCATION: GICU ADMIT DATE: 10/18/2016 Consultation DISCHARGE DATE: FAMILY PHYSICIAN: Cain Burch MD ATTENDING PHYSICIAN: LES PACKER DATE OF CONSULTATION: 10/17/2016 REFERRING PHYSICIAN: Nena Cuevas MD This is a [facility] Nephrology consultation. REASON FOR CONSULTATION: Acute kidney injury on chronic kidney disease. HISTORY OF PRESENT ILLNESS: This is an 81-year-old male patient, who is well known to Nephrology from previous admissions, who presents with chest pain that started around 7 p.m. last night. The patient reported substernal chest pain with an intensity of 7/10 with radiation to bilateral hands. The patient was noted to have a positive stress test on his last admission, however, he did refuse catheterization at that time. The patient has been managed medically from the Cardiology standpoint. The patient's past medical history has been quite cumbersome and most recently has been noted to have history of renal cell carcinoma with a total right nephrectomy with renal mass on the left kidney concerning for carcinoma. The patient has been set up to follow with Dr. Shin, however, he has refused further evaluation. The patient therefore does have a solitary left kidney with a baseline creatinine between 1.7 to 1.9. The patient was recently admitted in August 2016 with an obstructive episode and a left ureteral stent was placed by Dr. Cesar. The patient's creatinine on admission was found to be 2.0. Therefore, there has been a Nephrology consult for further management of his LLOYD on CKD with a known baseline of 1.7 to 1.9. The patient is planning to undergo a left heart catheterization with Dr. Cuevas at the time of exam. He has been placed on Mucomyst as well as sodium bicarbonate IV in preparation for this. PAST MEDICAL HISTORY: As listed above and including; 1. Right renal cell carcinoma with nephrectomy. 2. Left renal mass with renal invasion, refused left nephrectomy. 3. Coronary artery disease. 4. Ascending thoracic aneurysm, 4.4 cm. PAST SURGICAL HISTORY: Total right nephrectomy. ALLERGIES: FENTANYL. CURRENT HOME MEDICATIONS: 1. Tylenol 500 to 1000 mg p.o. q.6 hours p.r.n. for pain. 2. Lipitor 40 mg p.o. q.h.s. 3. Z-KELLEY 250 mg p.o. daily x5 days, started 10/15/2016. 4. Imdur 15 mg p.o. daily. 5. Nitroglycerin 0.4 mg sublingually q.5 minutes p.r.n. for chest pain. 6. Triamcinolone cream 1 application topically twice a day. PATIENT'S NAME: WINTER DYE [facility] AGE: 81 Y [address] ROOM: [place] [address] LOCATION: GICU ADMIT DATE: 10/18/2016 Consultation DISCHARGE DATE: FAMILY PHYSICIAN: Cain Burch MD ATTENDING PHYSICIAN: LES PACKER SOCIAL HISTORY: The patient is a positive smoker. Denies illicit drug use or alcohol use. The patient reports he quit smoking approximately one month ago. He used to smoke approximately half a pack a day for 40 years. FAMILY HISTORY: Significant for gastric cancer at the age of 66. Mother at the age of 90 from old age. Two brothers, who have from coronary artery disease in their 70s. There is no history of renal disease or dialysis. REVIEW OF SYSTEMS: GENERAL: Denies any fever, chills, or night sweats. EYES: No double vision or blurred vision. NOSE: No epistaxis or rhinorrhea. MOUTH: No gingival bleeding. THROAT: No sore throat, hoarseness, or cough. RESPIRATORY: Denies wheezing or hemoptysis. CARDIOVASCULAR: See HPI. Complains of exertional chest pain as well as shortness of breath. Positive non-STEMI. GASTROINTESTINAL: Denies nausea or vomiting currently. MUSCULOSKELETAL: Denies arthralgias or myalgias. GENITOURINARY: Denies frequency, urgency, or hesitancy. Doherty catheter is placed. NEUROLOGIC: Denies numbness or tingling in the upper or lower extremities. HEMATOLOGIC: Denies bruising or easy bleeding. IMMUNOLOGIC: Was recently started on Z-KELLEY on 10/15/2016. PSYCHIATRIC: Denies depression or anxiety. LABORATORY DATA: WBCs 6.2, hemoglobin 13.2, hematocrit 40.8, and platelets 167. Glucose 122, BUN 34, creatinine 1.9, sodium 143, potassium 4.7, chloride 107, CO2 of 28, calcium 8.0, albumin 3.6, AST 18, ALT 27, alkaline phosphatase 64, Mag 2.1, and phos is 4.8. UA is significant with protein, 150 blood, wbc's 10 to 20, rbc's of 5 to 10, and amorphous crystals 1+. TSH 1.23, pre-albumin is 21, and D-dimer is 0.47. PHYSICAL EXAMINATION: VITAL SIGNS: Blood pressure is 121/58, pulse is 60, respirations 20, temperature is 97.7, and saturations are 95% on 2 L nasal cannula. GENERAL: On exam, this is an elderly white male, who appears his approximate stated age, is in no acute distress. HEENT: Head is normocephalic and atraumatic. Eyes: Pupils are equal, round, and reactive to light and accommodation. EOMs are intact. Corrective lenses are worn. Nose is midline. Mouth: No gingival bleeding. Throat is without lymphadenopathy, carotid bruits, or JVD. LUNGS: Lung sounds are clear to auscultation anteriorly and posteriorly. The patient is on 3 L nasal cannula. CARDIOVASCULAR: Regular rate and rhythm with no appreciable murmurs, rubs, or thrills. ABDOMEN: Obese. Bowel sounds are positive. Nontender. EXTREMITIES: No signs or peripheral edema, clubbing, or cyanosis. GENITOURINARY: Doherty catheter is placed with clear yellow urine draining.PATIENT'S NAME: WINTER DYE [facility] AGE: 81 Y [address] ROOM: [address] [address] LOCATION: [facility] ADMIT DATE: 10/18/2016 Consultation DISCHARGE DATE: FAMILY PHYSICIAN: Cain Burch MD ATTENDING PHYSICIAN: LES PACKER ASSESSMENT AND PLAN: 1. Acute kidney injury on chronic kidney disease stage III to IV. The patient's baseline creatinine is between 1.7 and 1.9. We will continue his IV sodium bicarbonate x6 hours post cardiac catheterization. We will obtain a renal ultrasound to further evaluate the left ureteral stent for concerns for obstructive uropathy. Urology to be consulted. 2. Non-ST segment elevation myocardial infarction. 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 Cuevas for further evaluation of coronary artery ischemia. Further recommendations will be forthcoming. 3. Renal cell carcinoma status post right nephrectomy & now with Lt renal CA stage I-II s/p RFA. Oncology will be consulted for further evaluation and recommendations. The patient has refused Lt nephrectomy before, however, we will seek Dr. Cesar's input for further recommendations. This patient has been seen and assessed by Dr. Guerra. His care is being conducted in consultation with Dr. Guerra as well as me. We will plan further recommendations as they are forthcoming. MICHELLE LIM DNP, [facility] [employer] FOR [facility] YOLANDA GUERRA MD PATIENT'S NAME: WINTER DYE [facility] AGE: 81 Y [address] ROOM: [place] [address] LOCATION: [facility] ADMIT DATE: 10/18/2016 Consultation DISCHARGE DATE: FAMILY PHYSICIAN: Cain Burch MD ATTENDING PHYSICIAN: LES PACKER/santhosh /[id number] d: 10/18/16 2145 t: 10/28/16 1355, CONSULTATION REPORT
--- NOTE | ~2016-10-16 | CON ---
PATIENT'S NAME: WINTER DYE [facility] AGE: 81 Y [address] ROOM: [address] [place], [place] [address] LOCATION: GPCU ADMIT DATE: 10/18/2016 Consultation DISCHARGE DATE: FAMILY PHYSICIAN: Cain Burch MD ATTENDING PHYSICIAN: LES PACKER DATE OF CONSULTATION: 10/18/2016 REFERRING PHYSICIAN: Nena Cuevas MD REQUESTING PHYSICIAN: Dr. Cuevas. REASON FOR THE CONSULTATION: Severe three-vessel coronary artery disease. HISTORY OF PRESENT ILLNESS: The patient is an 81-year-old white male, admitted with substernal chest pain radiating to the bilateral arms, which was not relieved with sublingual nitroglycerin. The patient was ruled in as a non-STEMI. Incidentally, the patient had a subsequent admission during the 1st week of September 2016 where he was admitted with a non-STEMI. He had a positive stress test at that time. He declined any cardiac intervention and opted for medical management only. The patient is known to have a first-degree AV block. The patient was not able to be placed on beta blockers or aspirin in his prior admission secondary to the AV block because the aspirin caused epistaxis and hematuria. Of further concern, the patient has a history of renal cell carcinoma for which he underwent a right nephrectomy. Unfortunately, he has a slow-growing tumor in his remaining left kidney. He is admitted today with a creatinine of 2. His baseline is from 1.[address] Cuevas and we consulted the patient during this hospitalization. He further discussed cardiac catheterization and this time the patient did consent. He was aware of the kidney implications with the dye. Findings were for an LAD at 100% and RCA at the midportion of 90% and OM at 70% and a ramus/OM1 at 60% to 70%. Given the findings, coronary artery bypass grafting is recommended and Dr. Tovar was asked to weigh in on the patient's current renal cell carcinoma of grade 1-2 to the left kidney and given its slow growing status, he feels that the patient's prognosis with the renal cell carcinoma will be good and did feel that going forward with coronary artery bypass grafting would be appropriate. Nephrology has also been consulted and will follow along. Dr. Coles was asked to further discuss risks, benefits and alternatives of coronary artery bypass grafting with the patient. PAST MEDICAL HISTORY: Illnesses: PATIENT'S NAME: WINTER DYE [facility] AGE: 81 Y [address] ROOM: [address] [place], [place] [address] LOCATION: GPCU ADMIT DATE: 10/18/2016 Consultation DISCHARGE DATE: FAMILY PHYSICIAN: Cain Burch MD ATTENDING PHYSICIAN: LES PACKER 1. Renal cell carcinoma, status post right nephrectomy. 2. 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 3. First-degree AV block. 4. Coronary artery disease, non-STEMI. 5. Osteoarthritis. 6. History of skin cancer. Surgery/procedures: 1. Right nephrectomy. 2. Tonsillectomy. 3. Right carpal tunnel release. 4. Left kidney stent placement. 5. Colonoscopy. ALLERGIES: FENTANYL, WHICH CAUSES RASH AND ITCHING. SOCIAL HISTORY: The patient is . He has grown children. He is retired from [employer] sales. He is a smoker having smoked for better than 40 years. He just quit. He denies use of alcohol and drugs. FAMILY HISTORY: Father had history with gastric cancer. His mom lived to be 90 years old with no known health issues. He had two brothers, who from myocardial infarctions. CURRENT MEDICATION: 1. Heparin drip per protocol. 2. Nitroglycerin drip per protocol. 3. Tylenol 500 to 1000 mg q.6 hours p.r.n. pain. 4. Lipitor 40 mg at bedtime. 5. Z-Irving 250 mg daily for five days, initiated on October 15, 2016. 6. Imdur 15 mg daily. 7. Triamcinolone cream topically b.i.d. REVIEW OF SYSTEMS: GENERAL: No recent change in weight or appetite. The patient has been feeling poorly for quite some time with chest discomfort, overall of fatigue. HEENT: No visual changes. Does require glasses. He is hard of hearing and does wear bilateral aids. No difficulty swallowing. He does have dentures. RESPIRATORY: He has not really been having any issues with shortness of breath, VENCES, PND, or orthopnea. No known obstructive sleep apnea. CARDIOVASCULAR: Chest pain that has been ongoing intermittently for the last month or so. No complaints of ongoing edema to the lower extremities. GASTROINTESTINAL: No nausea, vomiting, constipation, or diarrhea. No PATIENT'S NAME: WINTER DYE [facility] AGE: 81 Y [address] ROOM: [address] [place], [place] [address] LOCATION: [facility] ADMIT DATE: 10/18/2016 Consultation DISCHARGE DATE: FAMILY PHYSICIAN: Cain Burch MD ATTENDING PHYSICIAN: LES PACKER persistent GERD symptoms. GENITOURINARY: Has not had any urinary issues. MUSCULOSKELETAL: Does have generalized arthritic aches and pains. NEUROLOGIC: No frequent or severe headaches. No history of seizures, memory loss, or syncope. ENDOCRINE: No history of diabetes or thyroid conditions. INTEGUMENTARY: Has had history with skin cancer. PSYCHIATRIC: No psychiatric or psychiatric treatment history. PHYSICAL EXAMINATION: VITAL SIGNS: Blood pressure 99/58, pulse is 64, respirations 18, temp 97.6, O2 saturations 93% on room air. Weight is 121 kg. Height is 170 cm. GENERAL: He is pleasant. He is in no acute distress. HEENT: Normocephalic, atraumatic. EOMIs intact. LUNGS: Clear to auscultation to the anterior bilaterally. CARDIOVASCULAR: Regular rate and rhythm without murmur. ABDOMEN: Obese, nontender by 4 quadrants with positive bowel sounds throughout. EXTREMITIES: No overt varicosities or edema. To the feet and ankles, he has a petechial type of rash. There are no open lesions. There is no evidence of infection. NEUROLOGIC: Alert and oriented. SKIN: As per extremities. LABORATORY AND TEST RESULTS: The patient's CT scan does indicate a thoracic 4.4-cm aneurysm. His echocardiogram describes no valvular heart disease. His ejection fraction is at 45%. IMPRESSION: 1. Multivessel coronary artery disease. 2. Non-ST Segment Elevation Myocardial Infarction. 3. Chronic kidney disease, stage IV. 4. Renal cell carcinoma, unilateral kidney. RECOMMENDATION PLAN: Dr. Coles reviewed the catheterization studies, echocardiogram and medical records. The case was also discussed with Cardiology. The patient will require a four-vessel bypass. Risks and benefits of the procedure were discussed. Discussion of the risks include, but not limited to, bleeding, requiring transfusion, return to the operative suite, myocardial infarction, cerebrovascular accident, renal and/or pulmonary failure. Also, discussed were arrhythmias and infection as well as operative and postoperative mortality. The patient does understand that he is at a higher risk of requiring short-term, possible long-term dialysis. Also, discussed were PATIENT'S NAME: WINTER DYE [facility] AGE: 81 Y [address] ROOM: [id number] [place] [id number] LOCATION: GPCU ADMIT DATE: 10/18/2016 Consultation DISCHARGE DATE: FAMILY PHYSICIAN: Cain Burch MD ATTENDING PHYSICIAN: LES PACKER concerns that the patient could not be on aspirin due to hematuria or epistaxis. This may have to be reconsidered. Also, beta blockade may not be possible as well. Oncology has cleared the patient to proceed with surgery. Nephrology will follow along as well Cardiology and hospital services. The patient's and family's questions were asked and answered to their satisfaction. We will proceed with a four-vessel bypass on October 19, 2016. I would like to thank Dr. Cuevas for allowing us to participate in the care of this very pleasant gentleman. EFRAIN BARTLETT APRN FOR MD ALYSA VELASCO/santhosh /[id number] d: 10/21/16 2332 t: 11/15/16 0807, CONSULTATION REPORT
--- NOTE | ~2016-10-16 | CON ---
PATIENT'S NAME: WINTER CHAMBERS [facility] AGE: 81 Y [address] ROOM: [address] [place], [place] [address] LOCATION: GPCU ADMIT DATE: 10/17/2016 Consultation DISCHARGE DATE: FAMILY PHYSICIAN: Cain Burch MD ATTENDING PHYSICIAN: LES PACKER REFERRING PHYSICIAN: Nena Cuevas MD CHIEF COMPLAINT: Asked to evaluate patient with renal cell carcinoma and need for upcoming cardiac surgery. HISTORY OF PRESENT ILLNESS: Winter Chambers is 81-year-old gentleman, who has a diagnosis of renal cell carcinoma dating back to December 2011, at which point he had a right nephrectomy which demonstrated grade 3 renal cell carcinoma with 0 to 4 lymph nodes and stage III, pT3A, PN0 (0/4). At that time, it time is unclear if it was at that time or later that he was noted to have a left renal mass but on 07/10/2013, he underwent a biopsy of the left renal mass, which demonstrated a grade 1-2 renal cell carcinoma. At the same time, he had radiofrequency ablation of posterior aspect of that tumor. He has had followup with Dr. Cesar in the interim and has had a number of imaging studies which will be reported below that for the most part demonstrate a slow progression of that left known renal mass since July 2013, now measuring 4.7 x 4.[address] scan on September 04, 2016. The patient presented to [facility] after presenting to a local hospital with chest pain and was transferred for further evaluation and is found to have a non-ST elevated PA. He was hospitalized in September with cardiac issues at that time and found to have coronary artery disease at that time, treated medically because of the known renal mass, but upon presentation again, consideration for CABG comes up and we were asked to evaluate the patient to give an idea of prognosis and expectations from the renal cell carcinoma. The patient reports today, he is feeling pretty well although his back is sore from laying so long. He denies any other pain or discomfort. No chest pain at this time. No breathing troubles at this time. He is undergoing an echocardiogram at the time I visited with him and his and family member are present. He has not had fevers, chills, or infectious symptoms. No respiratory changes. No abdominal complaints including nausea, abdominal pain or discomfort, diarrhea or constipation, and no musculoskeletal changes. He denies any adenopathy or lumps or bumps appreciable. Otherwise, remainder of the review of systems is negative or unremarkable in detail. The patient has previously been on aspirin therapy but quit due to hematuria. Additionally, beta-cece have been avoided because of first degree AV block. PATIENT'S NAME: WINTER CHAMBERS [facility] AGE: 81 Y [address] ROOM: [id number] [place] [id number] LOCATION: GPCU ADMIT DATE: 10/17/2016 Consultation DISCHARGE DATE: FAMILY PHYSICIAN: Cain Burch MD ATTENDING PHYSICIAN: LES PACKER PAST MEDICAL HISTORY: Includes coronary artery disease with non-ST elevated PA in September 17 and most recently during his hospital stay he had a positive stress test in September. He has had first-degree AV block. He has had chronic kidney disease, stage III, for renal cell carcinoma status post right nephrectomy, and biopsy of the left kidney with a grade 1-2 renal cell carcinoma dating back to July 2013. 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 The patient does have a ureteral stent placed, which is due to be changed in October or November. FAMILY HISTORY: The patient's mother passed at 90. Father passed at 66 of gastric cancer. He has had two brothers, diagnosed in their 70s. SOCIAL HISTORY: He is a former smoker, quit about a month ago. Smoked one-half pack per day for 40 years. Does not drink alcohol or use illicit drugs. He is and lives in [place]. HOME MEDICATIONS: Include: 1. Imdur 15 mg in the morning. 2. Lipitor 40 mg at bedtime. ALLERGIES: FENTANYL THIS CAUSES PRURITUS. PHYSICAL EXAMINATION: VITAL SIGNS: Blood pressure 132/70, pulse 53, respirations 16, temperature 95.2 degrees. GENERAL: The patient appears quite comfortable. No apparent distress. He has had an echocardiogram done as we speak and physical exam further is not performed. LABORATORY DATA: Include a CBC with a white blood cell count of 6.2, hemoglobin 13.2, and platelets 167. Electrolytes were remarkable for a BUN and creatinine at 34 and 1.9 respectively. RADIOLOGIC REVIEW: CT scan of the chest on 09/04/2016 compared to July 192015 demonstrated an AAA of 4.4 cm and a stable left renal mass of 4.7 x 4.4 cm and a left adrenal nodule of 2.2 with previous reports demonstrating this and PATIENT'S NAME: WINTER CHAMBERS [facility] AGE: 81 Y [address] ROOM: [address] [place], [place] [address] LOCATION: GPCU ADMIT DATE: 10/17/2016 Consultation DISCHARGE DATE: FAMILY PHYSICIAN: Cain Burch MD ATTENDING PHYSICIAN: LES PACKER suggesting this to be consistent with an adenoma by imaging. Ultrasound on September 03, 2016 demonstrated the mass of 3.2 x 2.9 x 2.7 cm along with a ureteral stent. CT scan of the abdomen on 04/12/2016 demonstrated a left renal mass was 68 x 38 mm and a stable post ablative site in the left posterior kidney. CT scan of the abdomen on 10/14/2015 demonstrated this mass to be 60 x [address] scan of the abdomen on 10/14/2014 demonstrated this mass to be 3.[address] scan of the abdomen on 02/04/2014 demonstrated this mass to be 34 mm. CAT scan on 10/22/2013 and demonstrated this mass to be 34 mm, which was decreased from the previous exam. CT scan on 06/15/2013 demonstrated this massive of 47 x 39 x 33 mm. On 07/09/2013, the patient underwent embolization and a biopsy. IMPRESSION AND PLAN: Winter Chambers is 81-year-old gentleman with a longstanding history of renal cell carcinoma, now with coronary artery disease with non-ST elevated myocardial infarction requiring cardiac intervention at this point. Regarding the patient's renal cell carcinoma, he has had previous renal cell carcinoma of the right kidney status post nephrectomy with a grade 3 renal cell carcinoma dating back to December 2011. He also has renal cell carcinoma grade 1-2, diagnosed by biopsy of the left kidney on 07/10/2013. He is status post ablation of that with slow progression of disease over the last four years with the tumor now measuring approximately 4.7 x 4.4 cm in size. His renal function appears relatively stable with a creatinine of around 2. Of note, he has had previous hematuria with aspirin therapy in the past and has avoided aspirin because of this. Regarding the patient's prognosis from renal cell carcinoma, I expect that it is going to be quite good given the fact that he has had this renal cell carcinoma known for four years with slow progression during that time and I expect this to continue on that course following any cardiac procedure though as the patient will be on anti-platelet therapies, bleeding may occur from the renal cell carcinoma. As long as the bleeding is minimal, unable to keep up with the anemia, then acceptance of some bleeding may be reasonable, however, if the bleeding becomes difficult to keep up with, then consideration for surgical intervention with a nephrectomy may be necessary, which would lead him to need hemodialysis. The patient is aware of this and feels relatively comfortable with this consideration knowing that if heart is not taken care of this could be bigger issue in this short run. The patient will visit with Dr. Cesar tomorrow regarding the same issues, but I do feel it is reasonable to proceed with surgical therapy. Of note, the patient does have a ureteral stent which may need to be replaced in October or November and I will defer to Dr. Cesar for this. At this point, the patient would PATIENT'S NAME: WINTER CHAMBERS [facility] AGE: 81 Y [address] ROOM: [place] [address] LOCATION: [facility] ADMIT DATE: 10/17/2016 Consultation DISCHARGE DATE: FAMILY PHYSICIAN: Cain Burch MD ATTENDING PHYSICIAN: LES PACKER not need benefit from systemic therapy for renal cell carcinoma, however, if metastatic disease ever did develop then that would be a consideration. MD NIYA DOMINGUEZ/santhosh /[id number] d: 10/17/161811 t: 10/18/16 1202, CONSULTATION REPORT
--- NOTE | ~2016-10-16 | PUL ---
PATIENT'S NAME: WINTER DYE [facility] AGE: 81 Y [address] ROOM: [address] [address] LOCATION: GPCU ADMIT DATE: 10/18/2016 Pulmonary DISCHARGE DATE: 10/25/2016 FAMILY PHYSICIAN: Cain Burch MD ATTENDING PHYSICIAN: Heriberto Resendiz NAME OF PROCEDURE: Overnight Pulse Oximetry DATE OF PROCEDURE: October 24 to October 25, 2016 REASON FOR EXAM: Nocturnal hypoxemia RESULTS: The test was performed on room air. The recording time was 9 hours, 12 minutes and 32 seconds, with a total valid sampling time of 8 hours, 57 minutes, and 52 seconds. The highest pulse was 161, lowest pulse was 47, with a mean pulse was 65. The highest SpO2 was 97%, lowest SpO2 was 74%, with a mean SpO2 of 92.4%. The patient spent 10 minutes and 52 seconds with SpO2 less than 89%, representing 2% of the total sleep time. The desaturation event index was elevated at 15.3. PHYSICIAN INTERPRETATION: The patient has evidence of mild but significant nocturnal hypoxia and would qualify for supplemental oxygen as per Medicare criteria. However, because of his nocturnal hypoxia with an elevated desaturation event index a sleep study is recommended at this time. MD CHASE COLEMAN/sania /[id number] dtt: 10/28/16 1033 , DAVID HYMAN dtd: 10/27/16 1533
--- NOTE | ~2016-10-16 | OR ---
PATIENT'S NAME: WINTER CHAMBERS [facility] AGE: 81 Y [address] ROOM: [address] [place], [place] [address] LOCATION: GICU ADMIT DATE: 10/18/2016 OR/Procedure Report DISCHARGE DATE: FAMILY PHYSICIAN: Cain Burch MD ATTENDING PHYSICIAN: LES PACKER SURGEON: Rudy Rodriguez MD PROGRESSIVE CARE NURSE: DATE OF PROCEDURE: 10/19/[address] Rudy Rodriguez dictating the following lines placed during the patient's four-vessel CABG. INDICATIONS FOR PROCEDURE: Mr. Chambers is an 81-year-old gentleman with a history of coronary artery disease. He also has a history of renal cell carcinoma status post nephrectomy with metastasis to the opposite kidney as well. He presents today for a four-vessel bypass due to ongoing anginal symptoms. Detailed discussion of risks and benefits was undertaken with Mr. Chambers last night by Dr. Rodriguez. I encountered Mr. Chambers in the preop holding area. He had no further questions and agreeing to the plan of arterial line, central line with Cocoa, and SÁNCHEZ monitoring. He is a fairly large individual and a very difficult IV access. He had one IV in his right antecubital. Multiple other IVs were attempted and I did attempt an arterial line on the patient's right side without success. Eventually due to the patient's discomfort and driving up his blood pressure, we opted to take him to the OR, and pursue lines in an unconscious state. The patient was then taken to OR #4, where he underwent uneventful induction of general anesthesia and intubation with his airway thus controlled, procedure #[address]. DESCRIPTION OF PROCEDURE: 1. Procedure #1: The patient's left arm was extended, dorsiflexed, and the wrist was sterilely prepped. Wendy Ramirez, using a 20-gauge Arrow arterial line kit cannulated the radial artery on the first pass without any difficulty. The wire was threaded into the artery and the catheter threaded off the wire into the artery. The wire was withdrawn and this was hooked up to a transducer setup which gave us a good arterial waveform. This was then affixed to the patient's wrist using sterile Tegaderms and tape. 2. Procedure #2: Having accomplished the arterial line, the right neck was selected with the patient's head rotated to the left. The neck was prepped with chlorhexidine. I gloved and gowned and placed a maximal sterile barrier. I was able to hit the internal jugular vein on the first pass without any difficulty. However, the wire threaded into about 15 cm and then stopped. I withdrew restock eventually getting the Site- [employer] and doing it under direct visualization. However, I could not visualize what ever was stopping the wire from proceeding, and I did not PATIENT'S NAME: WINTER CHAMBERS [facility] AGE: 81 Y [address] ROOM: [address] [place], [place] [address] LOCATION: GICU ADMIT DATE: 10/18/2016 OR/Procedure Report DISCHARGE DATE: FAMILY PHYSICIAN: Cain Burch MD ATTENDING PHYSICIAN: LES PACKER feel comfortable putting an introducer and Cocoa combination in without good wire access so at that point in time, I regloved and had them re- prepped the patient's left subclavian area. Maximal barrier was placed. An 18-gauge needle was inserted at the junction of middle and distal thirds of the clavicle aiming towards the sternum, dark venous blood was contacted on the first pass. The wire in this case threaded without difficulty. The needle was withdrawn. A small skin elina was made and a 9-Korean, 10 cm introducer was placed to its hub and sutured in place with 2-0 silk. The Cocoa-Mainor catheter was then removed from its packaging. All lumens were checked for patency and the balloon checked as well. This was then inserted in the multiaccess catheter introducer and floated out to a wedge position at about 55 cm. 3. At that point, the patient's stomach was suctioned with an 18-Korean nasogastric tube, and the SÁNCHEZ probe was placed in the posterior pharynx and guided into the esophagus without any difficulty. A dental guard was used. The pictures obtained were of good quality and adequate for interpretation. FINDINGS: Findings Prebypass: 1. Normal left ventricular function without any discrete wall-motion abnormalities. 2. Normal septal and apical function. 3. Valvular exam reveals normal mitral anatomy and coaptation with a trace of regurgitation. Aortic valve was trileaflet without evidence of stenosis or regurgitation. The aorta itself was enlarged at the aortic root. I believe it was 4.38 cm by measurement despite the fact the aortic valve itself has no evidence of insufficiency. Plaque was noted in the junction of distal arch and descending, a discrete plaque with projecting about 5 mm into the lumen was noted, and no mobile plaque was noted there. Additional plaques of lesser size were noted, occasionally these were imaged. Findings Postbypass: 1. Preserved left ventricular ejection fraction. No change from preoperatively, slightly more hyperdynamic due to the presence of inotropes, slight asymmetry noted due to pacing. No change in valvular exam. No change in aortic exam, presence of Cocoa-Mainor catheter is noted. If you have any questions regarding any of these lines, please do not hesitate to call. MD MNIA CHRISTIANSEN/santhosh PATIENT'S NAME: WINTER CHAMBERS [facility] AGE: 81 Y [address] ROOM: [address] [address] LOCATION: [facility] ADMIT DATE: 10/18/2016 OR/Procedure Report DISCHARGE DATE: FAMILY PHYSICIAN: Cain Burch MD ATTENDING PHYSICIAN: LES PACKER /[id number] d: 10/19/16 190 t: 10/20/16 1041, OPERATIVE SUMMARY
--- NOTE | ~2016-10-16 | CON ---
PATIENT'S NAME: [facility] AGE: 81 Y [address] ROOM: G6320 [place], [place] [address] LOCATION: GPCU ADMIT DATE: 10/17/2016 Consultation DISCHARGE DATE: FAMILY PHYSICIAN: Cain Burhc MD ATTENDING PHYSICIAN: LES PACKER DATE OF CONSULTATION: 10/17/2016 REFERRING PHYSICIAN: Nena Cuevas MD HISTORY OF PRESENT ILLNESS: Mr. Chambers is an 81-year-old, male patient who was hospitalized in the first week of September with a pff-EI-ohbtahz elevation RI. 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 Left kidney has been left alone and is being followed by his urologist. He developed a very similar symptom last night and within 30 minutes after taking 3 nitroglycerin, went to the emergency room in [place], where his EKG did not show any acute changes. His EKG in September of 2016 had possibly evidence for true posterior RI. He was transferred here by ground ambulance. When he got here, he was continuing to have pain. He was started on IV nitroglycerin, and he has been on IV heparin as well. His first troponin was normal, and the second troponin drawn earlier this morning reveals it to be high at 0.9 range. The patient has been in functional class 2 to 3 with no paroxysmal nocturnal dyspnea or orthopnea. There is no history of syncope, palpitations, or ankle swelling. There is no history of rheumatic fever, heart failure, dilated or enlarged heart, or any diagnosed cardiac arrhythmias. The patient has no history of hypertension or diabetes. His cholesterol is mildly elevated. He is a current smoker. There is no family history of premature coronary artery disease. MEDICATIONS: 1. Atorvastatin 40 mg a day. 2. Isosorbide mononitrate 15 mg a day. 3. Acetaminophen, and nitroglycerin as needed. ALLERGIES: FENTANYL. 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 PATIENT'S NAME: [facility] AGE: 81 Y [address] ROOM: G6320 [place], [place] [address] LOCATION: GPCU ADMIT DATE: 10/17/2016 Consultation DISCHARGE DATE: FAMILY PHYSICIAN: Cain Burch MD ATTENDING PHYSICIAN: LES PACKER SOCIAL HISTORY: The patient is a current smoker. He denies abusing alcohol. His weight has been stable. Appetite is poor. Sleep is poor. FAMILY HISTORY: No premature coronary artery disease. REVIEW OF SYSTEMS: 1. His 12-point review of systems is essentially unremarkable other than the above. 2. 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 PHYSICAL EXAMINATION: VITAL SIGNS: His blood pressure is 130/70, heart rate is 60 and regular, and respirations are 18. Afebrile. HEENT: Normal. NECK: Supple with no JVD, thyromegaly, lymphadenopathy, or carotid bruit. PMI is not well located. First and second heart sounds are regular. There are no added sounds or murmurs. CHEST: Clear to auscultation. ABDOMEN: Soft and nontender. Bowel sounds are normally present. EXTREMITIES: Reveal no edema. CENTRAL NERVOUS SYSTEM: Appears to be intact. ASSESSMENT: An 81-year-old, male patient with a second episode of cdg-NP-hklzquu elevation myocardial infarction. He has other comorbid conditions such as single kidney which has a mass in it and a creatinine of 1.9. In addition, he also has hematuria with aspirin as well as epistaxis. He does not feel comfortable with the idea of catheter based intervention. But at this point with a second episode of ahw-NC-tydbagklv myocardial infarction, I think he probably will benefit from knowing the anatomy before proceeding ahead with further plans for management of his condition. I have discussed that with him and his son who is with him at length. There is a good chance that he could potentially have renal failure from cardiac catheterization. We will also make sure that he has a chance of having bleeding, infection, myocardial infarction, or stroke, and possibly , these have all been discussed with the patient and family. This was done even with the last admission as well. Again based on their current feeling, we will proceed ahead with cardiac catheterization right away as he is still having some chest tightness. The initial plan is to just to get idea about his anatomy and then try to decide what to do as a next step. Again, I appreciate this opportunity to participate in the care of Mr. PATIENT'S NAME: [facility] AGE: 81 Y [address] ROOM: [address] [address] LOCATION: [facility] ADMIT DATE: 10/17/2016 Consultation DISCHARGE DATE: FAMILY PHYSICIAN: Cain Burch MD ATTENDING PHYSICIAN: LES PACKER. MD ODALYS DAVIS/santhosh /[id number] d: 10/17/16 1324 t: 10/26/16 1234, CONSULTATION REPORT
--- NOTE | ~2016-10-16 | ENPV ---
Vascular Lower Extremity Vein Mapping Procedure Demographics Patient Name WINTER DYE Date of Study 10/18/2016 Patient Number [id number] Gender Male Date of 1935 Age 81 Visit Number [id number] Height 66.93 Accession Number [id number] Weight 266.32 Referring Sharyn Cardoza MD Interpreting Hilario Mojica MD Physician Physician Physician Ordering Sharyn aCrdoza Admission Specialist Physician Zookeeper John Alacla [facility], [facility] Conclusions Summary No evidence of deep vein thrombosis or superficial thrombophlebitis in the lower extremities bilaterally . Bilateral greater saphenous veins are marked and mapped with vein diameters as listed. Procedure Type of Study: Veins:Lower Extremity Vein Mapping, Vein Mapping NH. Indications for Study:Pre-op CABG. Appropriate Use Criteria:9 Allergies - Other:(Fentanyl). Patient Status:Routine. Study Location:Inpatient Portable. Technical Quality:Adequate visualization. Risk Factors - The patient has a current/recent (within 1 year) tobacco history. - The patient's last creatinine was 1.9 mg/dl. Velocities are measured in cm/s ; Diameters are measured in cm + ++--------++--------+ !Superficial - Great Saphenous Vein !!Right !!Left ! + ++--------++--------+ !Location !!Diameter!!Diameter! + ++--------++--------+ !Sapheno Femoral Junction !! !!1 ! + ++--------++--------+ !GSV High Thigh !!0.45 !!0.5 ! + ++--------++--------+ !GSV Mid Thigh !!0.46 !!0.55 ! + ++--------++--------+ !GSV Low Thigh !!0.36 !!0.47 ! + ++--------++--------+ !GSV Knee !!0.25 !!0.48 ! + ++--------++--------+ !GSV High Calf !!0.24 !!0.37 ! + ++--------++--------+ !GSV Mid Calf !!0.22 !!0.29 ! + ++--------++--------+ !GSV Low Calf !!0.28 !!0.39 ! + ++--------++--------+ !GSV Ankle !!0.22 !! ! + ++--------++--------+ - Number of vein branches on the right side:1 above knee and 1 below knee. - Number of vein branches on the left side:1 below knee. Signature dtt: STEPHANIA BLAKE dtd: 10/18/16 1406 Physician Self Edit
--- NOTE | ~2016-10-16 | ECHO ---
Transthoracic Echocardiography Report (TTE) Demographics Patient Name WINTER DYE Date of Study 10/17/2016 Patient Number [id number] Visit Number [id number] Date of 1935 Room Number G6320 Gender Male Number Age 81 year(s) Referring Kiersten Barlow Mover Noam LUCIO, [facility] Physician Cinthia Greenberg Physician Interpreting Mason Barrett MD Quiller Machine Fixer Physician Supervising Ordering Mason Barrett MD, MD/AWILDAP Physician Nurse Stress Stock Holder Conclusions Summary Technically difficult exam due to patient's body habitus, being supine and non-cooperative. 6 mL Definity contrast was administered. The estimated left ventricular ejection fraction is 45% due to moderate septal hypokinesia.Mild concentric left ventricular hypertrophy.Normal internal dimension. Procedure Type of Study TTE procedure:2D Echocardiogram, M-Mode, Doppler , Color Doppler, Contrast study. Procedure Date Date: 10/17/2016 Start: 11:41 AM Study Location: Inpatient Portable Technical Quality: Limited visualization Indications:Chest pain. Appropriate Use Criteria: 9 Patient Status: Routine HR: 58 bpm BP: 129/78 mmHg Allergies - Other:(Fentanyl). M-Mode/2D Measurements LV Diastolic Dimension: 3.83 cm LV Systolic Dimension: 2.79 cm LV Septum Diastolic: 1.33 cm LV PW Diastolic: 1.35 cm AO Root Dimension: 3.4 cm Cardiac Output: 11.77 l/min AV Cusp Separation: 2.9 cm RV Diastolic Dimension: 2.58 cm LA volume: 13 ml LVOT: 3.8 cm RV Base: 3.54 cm LVOT VTI: 17.9 cm RV Mid: 3.62 cm LV Stroke volume: 202.9 ml TAPSE: 3.21 cm TDI-S': 14.1 cm/s Doppler Measurements AV Peak Velocity: 0.78 m/s MV Peak E-Wave: 0.55 m/s AV Peak Gradient: 2.45 mmHg MV Peak A-Wave: 0.98 m/s LVOT Peak Velocity: 0.77 m/s MV E/A Ratio: 0.56 MV P1/2t: 120 msec E' Lateral Velocity: 0.05 m/s PV Peak Velocity: 0.72 m/s PV Peak Gradient: 2.09 mmHg A' Lateral Velocity: 0.11 m/s Findings Left Ventricle Mild concentric left ventricular hypertrophy with normal internal dimensions.LVEF:45%.Moderate hypokinesia of the septum. Right Ventricle Normal right ventricle structure and function. Left Atrium Normal left atrial size. Right Atrium Normal right atrial size. Mitral Valve Normal mitral valve structure and function. Aortic Valve Normal aortic valve structure and function. Tricuspid Valve Normal tricuspid valve structure and function. Pulmonic Valve Normal pulmonic valve structure and function. Pericardial Effusion No evidence of pericardial effusion. Pleural Effusion No evidence of pleural effusion. Signature dtt: Nena Cuevas dtd: 10/17/16 1141 Physician Self Edit
--- NOTE | ~2016-10-16 | OR ---
PATIENT'S NAME: WINTER DYE [facility] AGE: 81 Y [address] ROOM: [address] [address] LOCATION: GICU ADMIT DATE: 10/18/2016 OR/Procedure Report DISCHARGE DATE: FAMILY PHYSICIAN: Cain Burch MD ATTENDING PHYSICIAN: LES PACKER SURGEON: Bacilio Coles MD KEYBOARD TEACHER: Elma Beltran. DATE OF PROCEDURE: 10/19/2016 PREOPERATIVE DIAGNOSES: Non ST elevation myocardial infraction, 3-vessel coronary artery disease, mildly diminished left ventricular function. POSTOPERATIVE DIAGNOSES: Non ST elevation myocardial infraction, 3-vessel coronary artery disease, mildly diminished left ventricular function. PROCEDURE: Urgent coronary bypass grafting x4 (left internal mammary to the LAD, sequential vein graft to the ramus intermedius and OM, and vein graft to the PDA). DESCRIPTION OF PROCEDURE: Support lines were placed. General endotracheal anesthesia was induced and prepping and draping were performed in sterile standard fashion. Saphenous vein was harvested from the left lower extremity endoscopically. Median sternotomy was performed. Left sternum was elevated and the left internal mammary artery harvested as a pedicle graft. Systemic heparinization was administered and the distal pedicle was divided. The mammary was prepared for future grafting. I noted during passage of dilators between 1 and 2 mm that the distal end of the mammary artery tended to delaminate easily. I cut that portion off, placed papaverine within the mammary and put a clip on the end. Papaverine was also injected into the pedicle. The sternal retractor was placed. The pericardium was opened in the midline and the heart was suspended in a pericardial cradle. Cannulation for cardiopulmonary bypass was achieved, a catheter was placed in the ascending aorta for administration of blood cardioplegia as well as for future venting. Cardiopulmonary bypass was instituted once the ACT was satisfactory. Distal target coronary arteries were identified and marked. Saphenous vein limbs were measured and the saphenous veins prepared. The aortic crossclamp was applied and antegrade cold blood cardioplegia was delivered. Topical cooling was also utilized. The sequential vein graft [id number] to the ramus and end-to-side to the OM was constructed first, both with running 7-0 polypropylene. Both of these were 1.5 mm good targets. Cardioplegia was again redosed as well as topical coolant applied. The graft to the PDA was placed next end-to-side with running 7-0 Prolene. The mammary LAD anastomosis was then placed end-to-side to the mid third of the LAD with running 8-0 Prolene. Left internal mammary artery flow was allowed to pass into the LAD system. The mammary pedicle was tacked to the epicardium with interrupted 5-0 PATIENT'S NAME: WINTER DYE [facility] AGE: 81 Y [address] ROOM: [address] [address] LOCATION: [facility] ADMIT DATE: 10/18/2016 OR/Procedure Report DISCHARGE DATE: FAMILY PHYSICIAN: Cain Burch MD ATTENDING PHYSICIAN: LES PACKER. Crossclamp was removed and warm blood perfusate was given down the vein grafts. Partial occlusion clamp was placed on the ascending aorta. Punch aortotomies were performed and proximal anastomoses were constructed end- to-side with running 6-0 Prolene. The clamp was removed and air vented from the ascending aorta with an 18-gauge needle. The stick site was repaired with a U-stitch of 5-0 Prolene. The vein grafts were stuck with a 30-gauge needle for release of any enclosed air and the bulldogs on the veins removed. Atrial and ventricular pacing wires were placed. Cardiopulmonary bypass was weaned and discontinued. Protamine was given with good hemostatic effect. Decannulation was carried out. All sites were secured. Three 24 Isaias drains were placed, one to the left chest, one to the right chest and one to the mediastinum. Platelet rich and then platelet poor plasma were applied to the sternal edges and subcutaneous tissues. The sternum was closed with interrupted #6 stainless steel wire, and the remainder of the chest wall closed in layers. The patient remained stable and was transferred to the CVICU. Good conduits and targets throughout. The patient off cardiopulmonary bypass with low-level inotropics support approximately 0.01 mcg/kg per minute of epinephrine, but probably did not need it. Good hemostasis. BACILIO COLES MD WR/modl /[id number] d: 10/19/16 1816 t: 10/20/16821, OPERATIVE SUMMARY
--- NOTE | ~2016-10-16 | PUL ---
PATIENT'S NAME: WINTER DYE [facility] AGE: 81 Y [address] ROOM: [address] [address] LOCATION: [facility] [place] ADMIT DATE: 10/18/2016 Pulmonary DISCHARGE DATE: FAMILY PHYSICIAN: Cain Burch MD ATTENDING PHYSICIAN: LES PACKER NAME OF PROCEDURE: Bedside Spirometry DATE OF PROCEDURE: October 18, 2016 TECH: TRISTON Lacy REASON FOR EXAM: Pre-surgical evaluation RESULTS: FVC was 2.91 liters which is 83% of predicted and normal, FEV1 was 2.53 liters which is 102% of predicted and normal, and FEV1/FVC was 86.8% and normal. The flow volume curve did not reveal any significant airflow limitation. However, the patient had multiple hesitations during the expiratory maneuvers. After bronchodilator administration FVC decreased to 2.5 liters and FEV1 decreased to 2.39 liters. FEV1/FVC was 95.4%. PHYSICIAN INTERPRETATION: The patient has no airflow limitation and no significant bronchodilator response. However, the results have to be interpreted with care as the maneuvers were not reproducible. MD CHASE COLEMAN/sania /[id number] dtt: 10/20/16 0752 , DAVID HYMAN dtd: 10/19/16 1133
--- NOTE | ~2016-10-16 | DS ---
PATIENT'S NAME: WINTER DYE [facility] AGE: 81 Y [address] ROOM: G6[address] [place], [place] [address] LOCATION: GPCU ADMIT DATE: 10/18/2016 Discharge Summary DISCHARGE DATE: 10/25/2016 FAMILY PHYSICIAN: Cain Burch MD ATTENDING PHYSICIAN: Ismael Kingston The patient is an 81-year-old white male admitted on October 18, 2016, with chest pain, unstable angina, and ruled as a non-STEMI. Interestingly, this is the second episode of non-STEMI myocardial infarction within a month. At the last admission in September 2016, the patient had opted for medical management. His history is significant for having a history of a kidney cancer and now with the unilateral kidney. This unilateral kidney has a large tumor. However, given this second episode with chest pain, the patient had agreed to undergo a cardiac catheterization with Dr. Cuevas. Findings were for severe 3-vessel coronary artery disease. The patient has a mildly diminished left ventricular function. Again, this is a second non-STEMI myocardial infarction. The patient agreed to undergo coronary artery bypass grafting. Given his kidney history, however, Urology and Nephrology were contacted as well as the patient's oncologist. Dr. Tovar did indicate that he felt that the patient would have a good prognosis if he went through with coronary artery bypass grafting and therefore he agreed. Nephrology followed along for the patient's stage IV kidney status. He went to the operative suite on October 19, 2016, for urgent coronary artery bypass grafting x3 vessels consisting of a left internal mammary artery to the LAD, sequential vein graft to the ramus intermedius, and obtuse marginal and a vein graft to the PDA. The patient tolerated the surgery without complication. He was transferred to the ICU following the procedure and extubated within hours thereafter and without complication. On postoperative day #1, his lines and drips were discontinued. He was able to transfer to the progressive care floor. While on progressive care floor, he worked with cardiac rehab for strengthening purposes. Throughout his hospital stay, he had no runs of postoperative atrial fibrillation. He had no healing complications. His chest tubes, pacemaking wires, and Doherty catheter were discontinued in the routine postoperative timeframe. The patient actually did not have any creatinine levels that went above his baseline of 1.9. Overall, he did exceptionally well given his renal situation. Care Management worked with the patient and his family with regard to discharge needs. The patient and family did not feel that they needed any home health care services nor do they require a skilled stay. The patient was found stable to discharge on 10/25/2016. DISCHARGE ORDERS: Include a cardiac prudent diet. Activity levels as per the open heart surgery discharge summary sheet, which require no pulling, pushing, or lifting anything heavier than 10 pounds until November 30, 2016. The patient will follow up with Dr. Kingston in 2 weeks. He will follow with Dr. Burleson in 2 weeks. He will see his primary care provider, Dr. Burch, in 1 week. PATIENT'S NAME: WINTER DYE [facility] AGE: 81 Y [address] ROOM: [place] [address] LOCATION: GPCU ADMIT DATE: 10/18/2016 Discharge Summary DISCHARGE DATE: 10/25/2016 FAMILY PHYSICIAN: Cain Burch MD ATTENDING PHYSICIAN: Ismael Kingston FINAL DIAGNOSES: Oko-WV-ioxagwh elevation myocardial infarction/coronary artery disease, renal cell cancer, chronic kidney disease stage IV with current left-sided kidney tumor, first-degree heart block, osteoarthritis, and dyslipidemia. DISCHARGE MEDICATIONS: 1. Lipitor 40 mg h.s. 2. Nitrostat 0.4 mg sublingual up to 3 doses p.r.n. 3. Amiodarone 200 mg twice a day. 4. Aspirin 81 mg daily. 5. Colace 100 mg twice a day. 6. [place] 5/325 one to two every 4 to 6 hours. 7. Metoprolol 12.5 mg daily. The patient and family verbalized understanding of the discharge orders. The patient discharged home in stable condition. EFRAIN BARTLETT APRN FOR DO ALYSA ELLER/alejandral /[id number] d: 11/10/16 0307 t: 11/10/16 1355, DISCHARGE SUMMARY
--- NOTE | ~2016-10-16 | CATH ---
Cardiac Diagnostic Report Demographics Patient Name HARDIK Kaur Gender Male Date of 1935 Age 81 year(s) Patient Number [id number] Date of Study 10/17/2016 Visit Number [id number] Room Number G6320 [place] [id number] Ht 170 cm Wt 120.8 kg Referring Mason Primary Physician Physician Nena MOREJON Performing Mason Secondary Physician Physician Nena MOREJON Diagnostic Mason Assisting Physician Physician Nena MOREJON Interventional Physician Freelance Writer Physician Findings and Conclusions Diagnostic Findings and Conclusion Calcification involving proximal coronaries. LVEDP 23% Severe 3 vessel CAD Diagnostic Recommendations CT surgery consult Procedure Description The patient was brought to the diagnostic cardiac catheterization-EP laboratory in the fasting, non-sedated state. Informed consent was obtained in the written and verbal form after the risks and benefits were explained. The patient had no further questions and agreed to proceed. The planned puncture-incision site(s) were shaved and prepped with ChloraPrep and draped in the usual sterile manner. Conscious sedation, supplemental oxygen, and pain control medications were delivered by a registered nurse under physician guidance. Surface ECG rhythm, blood pressure measurement, and pulse oximetry were monitored throughout the procedure. Arterial access. The access site was infiltrated with lidocaine. The vessel was entered with the Seldinger technique. A sheath was advanced into the vessel and used for catheter placement. Selective left coronary angiography. A catheter was advanced into the left coronary vessel ostium under Fluoroscopic guidance. Contrast was injected by hand. Images were obtained in multiple projections. Selective right coronary angiography. A catheter was advanced into the right coronary vessel ostium under fluoroscopic guidance. Contrast was injected by hand. Images were obtained in multiple projections. Left heart catheterization. A catheter was advanced across the aortic valve to the left ventricle under fluoroscopic guidance. Resting hemodynamics were obtained. Arterial artery hemostasis was achieved. The patient was transferred to a regular nursing floor via cart accompanied by a nurse. The patient left the laboratory in stable condition. Diagnostic Cath Status: Urgent Procedure Procedure Type Diagnostic procedure:Angiography:, Coronary Angios w/[facility] Indications: Chest pain. The procedure was explained in detail to the patient. Risks, complications and alternative treatments were reviewed. Written consent was obtained. Medications Reviewed with Patient prior to Procedure. Angiographic Findings Dominance: Right Cardiac Arteries and Lesion Findings LMCA: Minor Luminal Irregularities. LAD: After first septal perforation 100%. Lesion on Prox LAD: Distal subsection.100% stenosis . LCx: Lesion on 1st Ob Suzie% stenosis . Comments:OM 1 50 - 60% Lesion on 2nd Ob Suzie% stenosis . RCA: Retrograde collaterals to LAD Lesion on Prox RCA: 40% stenosis . Lesion on Mid RCA: Distal subsection.90% stenosis . Coronary Tree Procedure Data Procedure Date Date: 10/17/2016Start: 09:55 AMEnd: 10:35 AM Entry Locations - Retrograde Percutaneous access was performed through the Right Femoral artery (Primary location). A 7 Fr sheath was inserted. Unsuccessful closure attempt was performed using: Perclose ProGlide (Openbay). Hemostasis was successfully obtained using Manual Compression. Closure Comments: Perclose unsuccessful. Pressure held for 20 minutes by Christiano Osuna. Procedure Medications Order and Administration + + +--------+ + !Time !Medication !Dosage !Route ! + + +--------+ + !10/17/2016 09:44 AM!Oxygen !2 l/min !NC ! + + +--------+ + !10/17/2016 09:52 AM!Versed !1 mg !I.V. ! + + +--------+ + !10/17/2016 09:52 AM!Morphine !1 mg !I.V. ! + + +--------+ + !10/17/2016 09:55 AM!Versed !1 mg !I.V. ! + + +--------+ + !10/17/2016 10:10 AM!Morphine !1 mg !I.V. ! + + +--------+ + !10/17/2016 10:12 AM!D5W 1000ml w/ 150 mEq Sodium !75 ml/hr!I.V. drip ! ! !Bicarb ! ! ! + + +--------+ + !10/17/2016 10:32 AM!Oxygen !2 !NC ! + + +--------+ + Devices Used - A6 Fr. BS JR 4 Diag. Catheterwas used for:Right coronary angiography. - A6 Fr. BS JL 5 Diag. Catheterwas used for:Left coronary angiography. Contrast Material - Isovue 30291 ml Fluoroscopy Time: Diagnostic: 2:48 minutes. Total: 2:48 minutes. Fluoroscopy Dose: Diagnostic: 1106 mGy. Total: 1106 mGy. Estimated Blood Loss: 15 ml. Medical History Allergies - Other:(Fentanyl). Risk Factors The patient risk factors include:last creatinine: 1.9 mg/dl, creatinine clearance: 52.98 ml/min and Current/Recent(w/in 1 year) tobacco use. Admission Data Admission Date: 10/17/2016 Admission Time: 01:47 AM Admit Source: Emergency department Insurance Payors: Medicare. Clinical Evaluation Leading to Procedure - The patient's CAD presentation was assessed as: Non-STEMI. - The patient's anginal syndrome during the past two weeks was assessed as: Class IV according to the [place] Cardiovascular Society Classification System (CCS). Anti-anginal medications were prescribed during the past two weeks. The medication is: Long Acting Nitrates. Hemodynamics Condition: Rest O2 Consumption: Estimated: 245.81Heart Rate: 53 bpm Pressures (mmHg) +-----+ + !Site !Pressure ! +-----+ + !LV !121/11 ,22 ! +-----+ + !LV !120/5 ,31 ! +-----+ + !LV !128/11 ,23 ! +-----+ + !AO !131/72 (95) ! +-----+ + !AO !133/73 (97) ! +-----+ + !LV !132/13 ,25 ! +-----+ + !AO !132/77 (100) ! +-----+ + Valve Gradients and Areas + +---------+---------+---------+ +---------+ + !Valve !Peak !Mean !Area !Index !Flow !Source ! + +---------+---------+---------+ +---------+ + !Aortic !0 !0 ! ! ! ! ! + +---------+---------+---------+ +---------+ + !Aortic !0 !0 ! ! ! ! ! + +---------+---------+---------+ +---------+ + Shunts Oxygen Values O2 Capacity 179.52 O2 Consumption 245.81 Signatures dtt: Nena Cuevas dtrachel: 10/17/16 0955 Physician Self Edit
--- NOTE | ~2016-10-16 | HP ---
PATIENT'S NAME: WINTER DYE [facility] [place] AGE: 81 Y [address] ROOM: [place] [address] LOCATION: [facility] ADMIT DATE: 10/16/2016 History & Physical DISCHARGE DATE: FAMILY PHYSICIAN: Cain Burch MD ATTENDING PHYSICIAN: Heriberto Resendiz DATE OF SERVICE: CHIEF COMPLAINT: Chest pain. HISTORY OF PRESENT ILLNESS: This is an 81-year-old male, who says that chest pain started tonight around 7 p.m. at rest. He felt this is a substernal chest pain, intensity 7/10 with radiation to both hands. He states the pain is constant and he took 3 tablets of nitroglycerin sublingual, however, without much relief. He cannot take aspirin given that aspirin sometimes would cause epistaxis and also hematuria. He also cannot take beta-cece because he has a first degree AV block. Because of the persistent chest pain, the patient went to [facility] for evaluation. Over there, EKG was performed, that shows sinus rhythm, normal heart rate with a first-degree AV block and inferior lead T-wave inversion, which is chronic, otherwise no other acute ischemic changes. The patient was given IV morphine over there for pain control and IV Ativan for anxiety. The patient was later transferred here for a higher level of care. Over here, the patient upon arrival still has chest pain about 7/10, substernal chest pain, radiation to both hands. He denies any dyspnea or any diaphoresis or palpitation or abdominal pain. Chest pain does not radiate to his back or lower back. He denies any other symptoms besides the substernal chest pain with radiation to both hands. Reviewing the chart, the patient was discharged here in September 2016 for NSTEMI. The patient was treated with ACS protocol. The patient had a positive stress test on last admission. 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 Therefore, the patient was managed medically. Upon discharge, the patient was totally chest pain free. Between the time he was discharged last time until today, he has been asymptomatic until tonight. REVIEW OF SYSTEMS: As mentioned in the history of present illness. All other systems reviewed and negative except those mentioned in the history of present illness. PAST MEDICAL HISTORY: PATIENT'S NAME: WINTER DYE [facility] AGE: 81 Y [address] ROOM: [place], [place] [address] LOCATION: ED ADMIT DATE: 10/16/2016 History & Physical DISCHARGE DATE: FAMILY PHYSICIAN: Cain Burch MD ATTENDING PHYSICIAN: Heriberto Resendiz 1. Chronic kidney disease, stage III to IV. 2. Bilateral renal carcinoma status post right total nephrectomy and left kidney likely has carcinoma as well, however, is not confirmed, but the patient has not been followed by any senior copywriter/oncologist. 3. Recent admission here and discharged in September 2016 for NSTEMI. 4. Ascending thoracic aneurysm, 4.4 cm. ALLERGIES: FENTANYL, WHICH CAUSES PRURITUS. HOME MEDICATIONS: Currently has been reconciled, but the patient tells me that he takes only Imdur 15 mg p.o. every morning and Lipitor 40 mg p.o. every evening. He cannot take aspirin due to epistaxis and hematuria and he cannot take beta- cece due to first-degree AV block. SOCIAL HISTORY: The patient is a former cigarette smoker. He quit just roughly 1 month ago. He used to smoke about half pack per day for 40 years. He denies any alcohol or any illegal drug use. PAST SURGICAL HISTORY: Status post right total nephrectomy. FAMILY HISTORY: Father from gastric cancer at age 66. Mother at age 90 from old age, the cause that he could not remember. He has 2 brothers, who in their 70s from myocardial infarction. No other premature coronary artery disease in his parents. PHYSICAL EXAMINATION: VITAL SIGNS: At time of my dictation; temperature 98, heart rate 62, blood pressure 160/80, saturation 97% on 2 L nasal cannula, and pain 4/10 in the substernal chest. GENERAL APPEARANCE: The patient is alert and oriented x3. In no acute distress. HEENT: Pupils equally round and reactive to light. Extraocular muscles intact. Anicteric sclerae. Nasal turbinates are normal bilaterally. Moist oral mucosa. No oral thrush. NECK: No JVD. No cervical lymphadenopathy. CARDIOVASCULAR: Regular rate and rhythm. No murmur. No rubs. No gallops. Chest wall nontender to palpation. RESPIRATORY: Clear. ABDOMEN: Obese, soft, nontender, and nondistended. No hepatosplenomegaly. Bowel sounds are present. PATIENT'S NAME: WINTER DYE [facility] AGE: 81 Y [address] ROOM: [place], [place] [address] LOCATION: [facility] ADMIT DATE: 10/16/2016 History & Physical DISCHARGE DATE: FAMILY PHYSICIAN: Cain Burch MD ATTENDING PHYSICIAN: Heriberto Resendiz EXTREMITIES: No edema in upper or lower extremities. NEUROLOGIC: Grossly nonfocal. SKIN: No ulcer. No rash. No cyanosis. MUSCULOSKELETAL: No joint pain. No muscle pain. Range of motion intact. LABORATORY DATA: Troponin less than 0.04, CPK 133, and CK-MB 1.6. White blood cells 7.7, hemoglobin 14, hematocrit 42.3, MCV 91.4, and platelet 181. Glucose 133, BUN 36, creatinine 2.0, sodium 140, potassium 4.4, chloride 107, CO2 of 24, calcium 7.8, total protein 6.7, albumin 3.6, AST 18, ALT 27, alkaline phosphatase 64, total bilirubin 0.3, magnesium 2.1, anion gap 13.4, GFR 32, INR 1.0, PTT 31, and CK-MB 1.6. D-dimer is pending. EKG on admission here on October 16, 2016, at 11:42 p.m., shows sinus bradycardia, heart rate of 56 beats per minutes with a first-degree AV block, NE interval 269 milliseconds, QRS normal at 105 milliseconds, QTc normal at 424 milliseconds. Chronic unchanged T inversion in lead 3, which is chronic. A new finding of ST depression in anteroseptal and lateral leads in V2, V3, V4, V5, and V6. No ST elevation. Chest x-ray here on admission, the official reading is pending. Based on my review when compared to the prior chest x-ray in December 2011, similar. At that time, it was read as normal heart without effusion. ASSESSMENT: 1. Chest pain, likely unstable angina. Unstable angina because there is no troponin elevation, however, he does have ST depression and ongoing chest pain. I will treat him with acute coronary syndrome protocol with IV heparin drip and also IV nitroglycerin drip. The patient cannot take aspirin due to epistaxis and hematuria. He also cannot take beta-cece due to first-degree atrioventricular block. Therefore, I will not give those medications. I will give him Lipitor. EKG in the morning. N.p.o. IV fluids for maintenance given that he has a chronic kidney disease stage III to IV. Cycle cardiac enzymes every 6 hours. Titrate the nitroglycerin drip for blood pressure control and also for chest pain control. Consult Cardiology in the morning. Likely, the patient may require another stress test. Further plans per clinical course. A1c was checked last time in September 2016, was 6.6. Lipid panel was LDL at 56, triglyceride 239, HDL 47, total cholesterol 150 in September 2016. Therefore, I am not going to repeat. Further plan depends on clinical course. IV morphine for pain control. IV Ativan for anxiety control. Blood pressure control with IV nitroglycerin drip right now. 2. Regarding his chronic kidney disease stage III to IV, I will consult Nephrology in the morning in case the patient this time might require cardiac catheterization; however, he only has one kidney, therefore I PATIENT'S NAME: WINTER DYE [facility] [place] AGE: 81 Y [address] ROOM: [place] [address] LOCATION: [facility] ADMIT DATE: 10/16/2016 History & Physical DISCHARGE DATE: FAMILY PHYSICIAN: Cain Burch MD ATTENDING PHYSICIAN: Heriberto Resendiz will defer the decision to Cardiology and Nephrology. The patient could continue with more aggressive medical management. We can also increase the Imdur dose, but I will leave the decision to Cardiology first. 3. Regarding his ascending thoracic aneurysm 4.4 cm, blood pressure control is very important to prevent development of ascending aortic dissection. The patient's pain does not radiate to the back and blood pressure on both arms are also equal. X-ray on my examination does not show mediastinum widening. The patient's chest pain is already relieved with nitroglycerin drip right now, now it is down to 4/10 intensity. He is also hemodynamically stable. If his chest pain worsens or becomes hypotensive, definitely we should think about aortic dissection. Further plan depends on clinical course. The patient only has one kidney, therefore, CT angiogram will be difficult choice, and SÁNCHEZ and TTE are for hemodynamically unstable patient. In that case, that will be performed if necessary. If necessary, I will also consult Cardiothoracic Surgery, but for now, the patient is improving. The patient will be watched closely in the progressive care unit. 5. Deep venous thrombosis prophylaxis. The patient is already on heparin drip. Time spent on the day of admission 40 minutes including chart review, talking to the patient, interviewing the patient, examining the patient, addressing all the questions and concerns the patient had, and going over the plan of care with the nurse, with the patient, and the patient's son at the bedside. Further plan of care will be decided by the incoming hospitalist who will be taking over the care starting on 10/17/16 at 8 AM. MD SONNY BHATTI/santhosh /[id number] D: [id number] T: [id number] HISTORY & PHYSICAL
[~2016-10-16 23:35] MED LIST changes: +ASPIRIN (CHILDR81 MG PO; +IMDUR30 MG; +LIPITOR40 MG PO
[2016-10-17 00:29] LABS: BASOPHIL # 0.1 K/uL (0.0-0.2); BASOPHIL % 0.8 %; EOSINOPHIL # 0.1 K/uL (0.0-0.5); HEMATOCRIT 42.3 % (33.0-50.0); IMMATURE GRANULOCYTE # 0.1 K/uL (0.0-0.3); IMMATURE GRANULOCYTE % 0.6 %; LYMPHOCYTE % 12.8 %; MCH 30.2 pg (27.0-34.0); MCHC 33.1 gm/dL (32.0-36.5); MCV 91.4 fl (83.0-98.0); MONOCYTE # 0.8 K/uL (0.0-1.0); MPV 9.9 fl (9.4-12.4); NEUTROPHIL # (ANC) 5.8 K/uL (1.4-9.0); NEUTROPHIL % 74.8 %; NRBC % 0 /100WBC (0-0.00); PLATELET COUNT 181 K/uL (150-450); RBC 4.63 M/uL (3.50-5.50); RDW-CV 14.3 % (11.9-14.6); WBC 7.7 K/uL (4.0-11.0)
[2016-10-17 00:36] LABS: PROTIME 10.4 SECONDS (9.6-11.1); PTT 31 SECONDS (25-32)
[2016-10-17 00:44] LABS: ALBUMIN 3.6 gm/dL (3.5-5.0); ALK PHOS 64 IU/L (33-138); ALT 27 IU/L (12-78); ANION GAP 13.4 (10.0-19.0); AST 18 IU/L (10-40); BLOOD UREA NITROGEN 36 mg/dL (6-24); CALCIUM 7.8 mg/dL (8.5-10.5); CHLORIDE 107 mMol/L (96-110); CO2 24 mMol/L (22-32); CPK 136 IU/L (35-332); ESTIMATED GFR (MDRD EQUATION) 32; MAGNESIUM 2.1 mg/dL (1.3-2.6); POTASSIUM 4.4 mMol/L (3.7-5.1); SODIUM 140 mMol/L (135-145); TOTAL BILIRUBIN 0.3 mg/dL (0.0-1.5); TOTAL PROTEIN 6.7 g/dL (6.0-8.4)
[2016-10-17] MEDS ORDERED: TYLENOL EXTRA500 MG (02:22)
[2016-10-17] MEDS ORDERED: NITROSTAT0.4 MG SL (02:23)
[2016-10-17 06:18] LABS: HEMATOCRIT 40.8 % (33.0-50.0); HEMOGLOBIN 13.2 g/dL (11.0-16.0); MCH 29.9 pg (27.0-34.0); MCHC 32.4 gm/dL (32.0-36.5); MCV 92.3 fl (83.0-98.0); RBC 4.42 M/uL (3.50-5.50); RDW-CV 14.4 % (11.9-14.6); WBC 6.2 K/uL (4.0-11.0)
[2016-10-17 06:38] LABS: ANION GAP 12.7 (10.0-19.0); CREATININE 1.9 mg/dL (0.6-1.3); MAGNESIUM 2.2 mg/dL (1.3-2.6); PHOSPHORUS 4.4 mg/dL (2.5-4.9); POTASSIUM 4.7 mMol/L (3.7-5.1)
--- NOTE | 2016-10-17 08:48 | NUR ---
0130: ADMITTED FROM [facility] WITH CHEST PAIN. HE STARTED HAVING SOME CP AT ABOUT 1900 LAST NIGHT. HE WAS BROUGHT BY AMBULANCE AND WAS STOPPED IN THE ER TO EVALUATE SINCE HE WAS STILL RATING HIS PAIN AT A 10/10. HEPARIN AND NITRO WAS STARTED. NITRO WAS INFUSING AT 25MG/MIN WHEN ADMITTED TO THE FLOOR. BY THE TIME THE PT WAS ADMITTED TO THE FLOOR, HIS PAIN WAS A 4/10. HE WAS ON 2L O2 PER CP PROTOCOL. HIS SON ACCOMPANIED THE PT.
--- NOTE | 2016-10-17 08:52 | NUR ---
Significant Event: SEE ADMISSION NOTE. PT HAS CONTINUED ON 25MCG/MIN OF NITRO TO KEEP PAIN LOWER. HE WAS PAIN FREE BUT STATED IT FELT TIGHT. DR. PACKER WAS NOTIFIED OF THIS DESCRIPTION AND HE WAS OK WITH THIS. HE HAS CONTINUED TO GET UP TO THE BR TO VOID PER URINAL. REMAINS ON 2L O2. REMAINS NPO UNTIL DR. PEREYRA SEES. Follow up:
[2016-10-17] MEDS ORDERED: Z-PAK250 MG (12:35)
[2016-10-17] MEDS ORDERED: TRIAMCINOLONE454 GM (12:35)
--- NOTE | 2016-10-17 20:15 | NUR ---
Significant Event: AOx3. To liaison inspection laboratory assistant this a.m. without intervention. Dr Coles consulted for CABG. R) groin site without eccymosis upon return. C/o chest pain 6-8/10 this afternoon approx 1630, nitro increased per Dr Coles. SBP to 170s at that time. Chest pain down to 1-2/10. IV lopressor given per Dr Meehan. Ativan also given. At approx 1755, patient requested to get up, agreed to dangle at bedside d/t chest pain, then abruptly stood. Cath site became eccymotic, remained soft. Pressure held, then sandbag. Dr Meehan aware. Tramadol refused x1, then accepted for back pain. Relief noted. Doherty placed d/t retention with discomfort. Currently draining without complication. Family at bedside. Follow up: Per plan of care. Dr Coles plans to see in a.m.
[2016-10-18 04:06] LABS: BASOPHIL % 0.6 %; EOSINOPHIL # 0.2 K/uL (0.0-0.5); HEMATOCRIT 37.6 % (33.0-50.0); HEMOGLOBIN 12.4 g/dL (11.0-16.0); IMMATURE GRANULOCYTE % 0.4 %; LYMPHOCYTE # 0.7 K/uL (0.8-4.0); MCH 30.3 pg (27.0-34.0); MCV 91.9 fl (83.0-98.0); MONOCYTE # 0.5 K/uL (0.0-1.0); MONOCYTE % 7.6 %; MPV 10.2 fl (9.4-12.4); NEUTROPHIL # (ANC) 5.4 K/uL (1.4-9.0); NEUTROPHIL % 78.4 %; NRBC % 0 /100WBC (0-0.00); PLATELET COUNT 159 K/uL (150-450); RBC 4.09 M/uL (3.50-5.50); RDW-CV 14.5 % (11.9-14.6); WBC 6.9 K/uL (4.0-11.0)
[2016-10-18 04:29] LABS: CALCIUM 7.9 mg/dL (8.5-10.5); CREATININE 1.8 mg/dL (0.6-1.3); PHOSPHORUS 3.8 mg/dL (2.5-4.9); POTASSIUM 4.2 mMol/L (3.7-5.1)
[2016-10-18 04:37] LABS: ANION GAP 13.2 (10.0-19.0)
--- NOTE | 2016-10-18 07:43 | NUR ---
Significant Event: REMAINS IN BED FOR MOST OF NIGHT. DID DANGLE AND STOOD UP AT THE SIDE. GROIN REMAINS SOFT WITH SMALL AMOUNT OF BRUISING. NTIRO CONTINUES AT 50 MCG/MIN ALL NIGHT. CP WAS OFF AND ON ALL NIGHT. DID GET MORE INTENSE WHEN GETTING UP TO THE SCALE. O2 INCREASED TO 3L TO KEEP SATS GREATER THAN 90%. SLEEPING OFF AND ON. Follow up:
[2016-10-18 13:39] LABS: BILIRUBIN URINE NEGATIVE (NEGATIVE); BLOOD URINE 150 /UL (NEGATIVE); COLOR URINE YELLOW (YELLOW); GLUCOSE URINE NEGATIVE (NEGATIVE); KETONE URINE NEGATIVE (NEGATIVE); LEUKOCYTES URINE 500 /UL (NEGATIVE); NITRITE URINE NEGATIVE (NEGATIVE); PROTEIN URINE 30 mg/dL (NEGATIVE); SPEC GRAVITY URINE 1.015 (1.003-1.035); TURBIDITY URINE CLEAR (CLEAR); UROBILINOGEN URINE NORMAL (NORMAL)
[2016-10-18 13:44] LABS: AMORPHOUS URINE 1+ (NEGATIVE); BACTERIA URINE NEGATIVE (NEGATIVE); EPITHELIAL URINE NEGATIVE #/HPF (NEGATIVE)
--- NOTE | 2016-10-18 19:50 | NUR ---
Significant Event: AOx3, c/o chest pain one time when he stated he was lying on his left side. As soon as he sat up, it went away. No medication given for this. SBP 99-120s, 2 L O2. Lungs dim to bases. Bruising to R) groin has spread to approx double the size of last night, remains soft. Doherty patent, draining yellow urine with white sediment. Nitro continues at 50 mcg as ordered, infusing without complication. Colace given as ordered, with no result as of this shift. 5 meter walk completed without angina; pt did state arms felt somewhat "weak". Has been less anxious today, more sedate, appears concerned but states he is ok with his decision for surgery. Family at bedside and supportive. Ambulates minimal assist and tolerates well. Pleasant and cooperative with cares. Follow up: CABG tomorrow per Dr Coles.
[2016-10-19 04:03] LABS: ANION GAP 13.2 (10.0-19.0); CREATININE 1.6 mg/dL (0.6-1.3); PHOSPHORUS 3.5 mg/dL (2.5-4.9); POTASSIUM 4.2 mMol/L (3.7-5.1)
--- NOTE | 2016-10-19 05:53 | NUR ---
PT PREPPED AND READY FOR CABG. NPO AFTER MIDNIGHT. SODIUM BICARBONATE RUNNING AND PREOP MEDS GIVEN. REPORT TO JOHNSON FROM PREOP. AMINA LOGAN. SHOWERED AND WIPED PER PROTOCOL.
[2016-10-19 12:53] LABS: HEMOGLOBIN 8.4 g/dL (11.0-16.0); MCV 92.7 fl (83.0-98.0); MPV 9.8 fl (9.4-12.4); RDW-CV 14.5 % (11.9-14.6); WBC 9.2 K/uL (4.0-11.0)
[2016-10-19 12:57] LABS: HEMATOCRIT 25.5 % (33.0-50.0); MCH 30.5 pg (27.0-34.0); MCHC 32.9 gm/dL (32.0-36.5); PLATELET COUNT 121 K/uL (150-450); RBC 2.75 M/uL (3.50-5.50)
[2016-10-19 13:06] LABS: INR - (THERAPEUTIC) 1.2 (0.9-1.1); PTT 36 SECONDS (25-32)
[2016-10-19 13:11] LABS: PROTIME 13.3 SECONDS (9.6-11.1)
[2016-10-19 13:43] LABS: ALPHA ANGLE 74 degrees; ALPHA ANGLE 74 degrees (70-81); CLOT FORMATION TIME 81 seconds; CLOTTING TIME 242 seconds; MAXIMUM CLOT FIRMNESS 58 mm; MAXIMUM CLOT FIRMNESS 61 mm (51-72); MAXIMUM LYSIS 1 %
[2016-10-19 13:44] LABS: BICARBONATE 27.4 mmol/L (18.0-23.0); PCO2 40 mmHg (35-45); PO2 174 mmHg (80-90); POTASSIUM 3.8 mEq/L (3.7-5.1); SODIUM 138 mEq/L (135-145)
[2016-10-19 13:45] LABS: BICARBONATE 28.2 mmol/L (18.0-23.0); PCO2 46 mmHg (35-45); PO2 402 mmHg (80-90); SODIUM 139 mEq/L (135-145)
[2016-10-19 13:46] LABS: BICARBONATE 26.5 mmol/L (18.0-23.0); PCO2 44 mmHg (35-45); PO2 317 mmHg (80-90)
[2016-10-19 13:46] LABS: POTASSIUM 3.8 mEq/L (3.7-5.1)
[2016-10-19 13:47] LABS: BICARBONATE 23.2 mmol/L (18.0-23.0); PCO2 40 mmHg (35-45); PO2 101 mmHg (80-90)
[2016-10-19 13:47] LABS: POTASSIUM 5.1 mEq/L (3.7-5.1); SODIUM 138 mEq/L (135-145)
[2016-10-19 13:48] LABS: POTASSIUM 4.1 mEq/L (3.7-5.1); SODIUM 137 mEq/L (135-145)
[2016-10-19 13:56] LABS: BICARBONATE 25.3 mmol/L (18.0-23.0); PCO2 48 mmHg (35-45); PO2 107 mmHg (80-90)
[2016-10-19 14:04] LABS: CLOTTING TIME 74 seconds (43-82)
[2016-10-19 14:10] LABS: ANION GAP 16.1 (10.0-19.0); CALCIUM 7.9 mg/dL (8.5-10.5); CREATININE 1.8 mg/dL (0.6-1.3); POTASSIUM 4.1 mMol/L (3.7-5.1)
--- NOTE | 2016-10-19 16:29 | NUR ---
Significant Event: Sedated on Propofol, weaning FIO2 on Ventilator. SIMV at 50% FIO2. Moves all extremities spontaneously. PERRLA. Follows commands intermittently. A paced at 80 bpm. L) radial and R) femoral arterial line. Chest tubes x3 to suction, serosangenous drainage. Doherty catheter intact. Dressing to R) groin, sternum and chest tube sites C/D/I. Dressing to R) leg C/D/I. L) midline catheter and L) subclavian central line with swan hemant infusing Insulin, Epinephrine, D5LR, Propofol, Amiodarone, and bicarb gtt. [place] hemant measured at 68 cm. CVP intact. KCl 20 meq given. CaCl 1000 mg given. PATRICIA hose to L) leg. Heart hugger intact. Repositioned. Family at bedside intermittently. Follow up: monitor. wean FIO2 and Epinephrine.
--- NOTE | 2016-10-20 03:45 | NUR ---
SIGNIFICANT EVENT: PT STABLE THROUGHOUT SHIFT, CI REMAINED >2.2, SBP CONTROLLED, STARTED INCREASING TOWARDS LAST HALF OF SHIFT. PAIN CONTROL ISSUES AT TIMES, NORCO AND DILAUDID UTILIZED FREQUENTLY. PT UNABLE TO GET TO CHAIR DUE TO FEMORAL ART LINE. FOLLOW UP:
[2016-10-20 04:11] LABS: BICARBONATE 27.5 mmol/L (18.0-23.0); PCO2 51 mmHg (35-45)
[2016-10-20 04:13] LABS: PO2 81 mmHg (80-90)
[2016-10-20 04:40] LABS: ANION GAP 14.8 (10.0-19.0); CALCIUM 8.2 mg/dL (8.5-10.5); CREATININE 1.8 mg/dL (0.6-1.3)
[2016-10-20 05:02] LABS: POTASSIUM 4.8 mMol/L (3.7-5.1)
[2016-10-20 05:23] LABS: HEMOGLOBIN 11.7 g/dL (11.0-16.0); MCHC 32.4 gm/dL (32.0-36.5); MCV 92.1 fl (83.0-98.0); MPV 11.3 fl (9.4-12.4); RDW-CV 14.6 % (11.9-14.6); WBC 9.7 K/uL (4.0-11.0)
[2016-10-20 05:26] LABS: HEMATOCRIT 36.1 % (33.0-50.0); MCH 29.8 pg (27.0-34.0); RBC 3.92 M/uL (3.50-5.50)
--- NOTE | 2016-10-20 14:07 | NUR ---
Significant Event: Alert and oriented x3. Follows commands. Naoma and dilaudid given for pain. Bedrest till 1600 due to femoral arterial line being dc'd per Dr. Coles. Dc'd CVP, [place] hemant, L) radial arterial line. L) subclavian central line dressing changed. Dressing to R) groin x2 C/D/I, ecchymosis from cath site. GRETA wrap removed from R) leg sutures open to air. Bathed this shift. Dressing to sternum C/D/I. Chest tube x3, serosangenous drainage, suction. Pacer shut off by Dr. Coles. L) midline catheter dc'd due to not flushing. ADA diet, 2000 ml fluid restriction. Doherty catheter to be dc'd. Cooperative with cares. PCU status. Follow up: transfer to PCU.
--- NOTE | 2016-10-20 15:41 | NUR ---
Introduced self and CM role to Param. He tells me that he lives at home in [place], [place] with his and he plans on returning there when he is able to do so. He has a FWW at home to use if he needs it, but tells me he didn't use one at baseline. Param comes down to visit him every couple days, but the kids have to bring her as she doesn't drive. He says that the kids will pick him up and take him home when he is ready to leave here. Param was doing his own medications at home prior to coming into the hospital and plans to continue doing so when he leaves. Has no other questions, needs or concerns at this time. Mario denies the need for any additional DME/HHC when he goes home, but is open to talking about them again closer to discharge to re-evaluate for the need for them at that time. Will continue to follow and assist. Plan home.
--- NOTE | 2016-10-20 17:34 | NUR ---
Significant Event: Patient A/O x 3. NATIVE. VSS on 4L O2. Transferred from ICU at approximately 1635. Sternum and chest tube sites with dressing C/D/I. No complications. Chest tubes to suction (450 ml out per ICU report). Doherty catheter taken out prior to transfer to PCU. Awaiting first void. L)subclavian central line with good blood return, saline locked. ACHS accu checks. Patient is not diabetic. Dilaudid given at 1715 for breakthrough pain at incision site. Follow up: Continue as per plan of care. Continue increasing activity and pain control.
[2016-10-21 10:57] LABS: ANION GAP 12.7 (10.0-19.0); CALCIUM 8.2 mg/dL (8.5-10.5); PHOSPHORUS 3.2 mg/dL (2.5-4.9); POTASSIUM 4.7 mMol/L (3.7-5.1)
--- NOTE | 2016-10-21 12:51 | NUR ---
JOSAFAT from Rhonda Lane at [facility] in [place], [place] wanting an update on Param. I called her back, , but she didn't answer so I left my name and number with her and asked that she call me back. Will wait for her to phone me back to give her an update. Will continue to follow and assist.
--- NOTE | 2016-10-21 19:21 | NUR ---
Significant Event:Aler& oriented. VSS, afebrile, 4L O2.150 out from chest tube. 1 assist. ACHS Accuchek.Numbness/tingling improving to bilat hands. Follow up:
[2016-10-22 05:35] LABS: ALBUMIN 2.6 gm/dL (3.5-5.0); ANION GAP 12.7 (10.0-19.0); CALCIUM 8.2 mg/dL (8.5-10.5); CREATININE 1.8 mg/dL (0.6-1.3); PHOSPHORUS 3.5 mg/dL (2.5-4.9)
[2016-10-22 05:39] LABS: POTASSIUM 4.7 mMol/L (3.7-5.1)
--- NOTE | 2016-10-22 05:42 | NUR ---
Significant events: Pt A/Ox3. VSS. Jameson x1, dilaudid x1 for sternal pain. CT to suction with 110mL out. Up 1PA. Dressing to sternum and abdomen CDI. R) groin eccymotic. L) subclavian central line in place. Slept on and off this shift.
--- NOTE | 2016-10-22 10:59 | NUR ---
A - PT SCREENED D/T LENGTH OF STAY. HT: 5'7", WT: 262#, IBW: 67 KG, %IBW: 177%. PT REPORTED UBW OF 265#. S/P CABG 10/19. WAS ON THE VENT FOR A DAY. LABS: GLU 123, BUN 29, CREA 1.8, ALB 2.6. MEDS: MOD SSI, LASIX. DIET: CONSISTENT CARBS W/ 2000ML FLUID RESTRICTION. INTAKE 21% X6 MEALS. PT REPORTED POOR APPETITE D/T NOT HAVING BM. DECLINED ENSURE ENLIVE/HIGH PROTEIN SNACK FOR TRIAL. BRIEFLY REVIEWED HEART HEALTHY DIET EDUCATION WITH PT. EST NEEDS: 5099-7308 KCAL (25-30 KCAL/KG IBW), 67-80 GRAMS (1-1.2 GRAMS/KG IBW), FLUID NEEDS: PER MD. D - AT NUTRITION RISK W/ INADEQUATE ORAL INTAKE RELATED TO DECREASED APPETITE SECONDARY TO RECENT HEART SURGERY AND NOT HAVING BM EVIDENCED BY PO 21% X6 MEALS. I - PT AGREED TO TRY MAGIC CUP ONCE DAILY. DECLINED OTHER NUTRITION SUPPLEMENT M/E - GOAL: PT WILL BE ABLE TO TOLERATE >50% OF MEALS IN 3-5 DAYS.
--- NOTE | 2016-10-22 16:32 | NUR ---
ONE ATTEMPT TO START POWERGLIDE IN RT UPPER EXTREMITY. UNABLE TO SUCCUSSFULLY PLACE DUE TO PT'S EXTREME SENSITIVITY TO THE NEEDLE DISPITE THE USE OF LIDOCAINE FOR LOCAL ANESTHETIC. DID NOT RECOMMEND ANOTHER ATTEMPT DUE TO PATIENTS INTOLERANCE OF THE PROCEDURE. MATTHIEU BARTLETT APRN WAS CONTACTED AND UPDATED OF THE SITUATION. SHE STATES TO LEAVE CENTRAL LINE IN PLACE.
--- NOTE | 2016-10-22 18:34 | NUR ---
Significant Event: A/O X3. UP WITH 1 ASSIST & GB. AMBULATED IN HALLS X2 WITH CR. CT X3, TO SUCTION, 110 ML OUTPUT. LEFT SUBCLAV CENTRAL LINE. ATTEMPTED TO PLACE PIV AND POWERGLIDE TODAY BUT WERE UNABLE TO GET ACCESS. ORDER TO LEAVE CENTRAL LINE IN FOR NOW. STERNAL INCISION COVERED WITH MEPILEX, C/D/I. RIGHT LEG HARVEST SITES WITH SUTURES INTACT. VSS. O2 WEANED TO 3L NC. REFUSED PAIN MEDS THIS SHIFT. Follow up:
[2016-10-23 04:29] LABS: ALBUMIN 2.6 gm/dL (3.5-5.0); ANION GAP 12.1 (10.0-19.0); CALCIUM 7.5 mg/dL (8.5-10.5); CREATININE 1.7 mg/dL (0.6-1.3); PHOSPHORUS 2.7 mg/dL (2.5-4.9); POTASSIUM 4.1 mMol/L (3.7-5.1)
--- NOTE | 2016-10-23 04:56 | NUR ---
Significant Event: Patient is alert/oriented x3. Vital signs stable. Continues on 3L O2. Medicated x2 for pain with [place], with relief. Mepilex dressing to sternal incision C/D/I. 2 pleural and 1 mediastinal chest tubes remain to suction, 40 mL sanguinous drainage out. Patient is compliant with sternal precautions. Good UOP. Has not had a bowel movement since 10/16/16 but does have good bowel sounds and is passing gas. Subclavian central line in place due to impossible peripheral venous access. Follow up: Continue to monitor per plan of care.
--- NOTE | 2016-10-23 16:10 | NUR ---
Significant Event: A/O X3. UP WITH MINIMAL ASSIST. AMBULATED IN HALLS WITH WHEELCHAIR. C/O PAIN TO BACK, NORCO 2 TABS X1 WITH GOOD RELIEF NOTED. CT X3 REMOVED TODAY BY DR. LOPEZ. PACER WIRES REMAIN CAPPED AND INTACT. LEFT SUBCLAV CENTRAL LINE SL'D. RIGHT LEG HARVEST SITES SUTURED, INTACT WITH NO OOZING OR DRAINAGE. O2 WEANED TO 1L NC, SATS LOW 90'S. DULCOLAX SUPP X1 AND PRUNE JUICE GIVEN, LARGE BM X1. VOIDING WELL. PLEASANT AND COOPERATIVE WITH CARES. Follow up:
[2016-10-24 06:06] LABS: ALBUMIN 2.7 gm/dL (3.5-5.0); ANION GAP 12.3 (10.0-19.0); PHOSPHORUS 3.5 mg/dL (2.5-4.9); POTASSIUM 4.3 mMol/L (3.7-5.1)
--- NOTE | 2016-10-24 06:22 | NUR ---
Significant Event: Patient is alert/oriented x3. Vital signs stable. Continues on 1L O2. Dressings to previous chest tube sites C/D/I. Patient compliant with sternal precautions and has heart hugger in place. Ambulates very well with minimal assist. [place] given x1 last night, with relief. Follow up: Dismiss tomorrow?
--- NOTE | 2016-10-24 17:28 | NUR ---
Significant Event: A/O X3. UP WITH MINIMAL ASSIST. AMBULATED IN HALLS WITH WHEELCHAIR. LEFT SUBCLAV CENTRAL LINE SL'D. STERNAL INCISION OPEN TO AIR. OLD CT SITES COVERED WITH DRESSING, C/D/I. PAIN HAS BEEN TOLERABLE TODAY, HASN'T NEEDED PAIN MEDS. O2 @ 1L NC, ATTEMPTED TO WEAN TO ROOM AIR BUT C/O SHORTNESS OF BREATH AND WAS MILDLY HYPOXIC 89-90%. PLEASANT AND COOPERATIVE WITH CARES. Follow up: POSSIBLE DISCHARGE HOME TOMORROW.
--- NOTE | 2016-10-25 04:22 | NUR ---
Significant Event: Patient A/Ox3. VSS on RA. Up ad-marlene in room. Patient is currently on DERRICK study. Sternal incision open to air - clean, approximated. Central line to L) subclavian. Follow up: Home today?
[2016-10-25 05:05] LABS: ALBUMIN 2.8 gm/dL (3.5-5.0); CREATININE 1.9 mg/dL (0.6-1.3); PHOSPHORUS 3.3 mg/dL (2.5-4.9)
[2016-10-25 05:26] LABS: BASOPHIL % 0.5 %; EOSINOPHIL # 0.1 K/uL (0.0-0.5); EOSINOPHIL % 1.4 %; HEMATOCRIT 34.3 % (33.0-50.0); HEMOGLOBIN 11.2 g/dL (11.0-16.0); IMMATURE GRANULOCYTE # 0.1 K/uL (0.0-0.3); IMMATURE GRANULOCYTE % 1.2 %; LYMPHOCYTE # 0.8 K/uL (0.8-4.0); LYMPHOCYTE % 9.8 %; MCH 29.9 pg (27.0-34.0); MCHC 32.7 gm/dL (32.0-36.5); MCV 91.7 fl (83.0-98.0); MONOCYTE # 0.7 K/uL (0.0-1.0); MONOCYTE % 8.6 %; MPV 10.6 fl (9.4-12.4); NEUTROPHIL # (ANC) 6.6 K/uL (1.4-9.0); NEUTROPHIL % 78.5 %; NRBC % 0 /100WBC (0-0.00); RBC 3.74 M/uL (3.50-5.50); RDW-CV 14.5 % (11.9-14.6); WBC 8.4 K/uL (4.0-11.0)
[2016-10-25 05:29] LABS: PLATELET COUNT 200 K/uL (150-450)
[2016-10-25] MEDS ORDERED: FLUZONE QU IM (10:58)
[2016-10-25] MEDS ORDERED: CORDARONE,PACE200 MG PO (10:59)
[2016-10-25] MEDS ORDERED: ASPIRIN LO-DOSE81 MG PO (11:03)
[2016-10-25] MEDS ORDERED: COLACE100 MG PO (11:06)
[2016-10-25] MEDS ORDERED: NORCO 5-325 TA1 EACH PO (11:12)
[2016-10-25] MEDS ORDERED: TOPROL XL25 MG PO (11:30)
--- NOTE | 2016-10-25 13:07 | NUR ---
PT DISMISSED TO HOME WITH SON TO DRIVE. AT TIME OF DC PT IS A/O PINK WARM AND DRY, STEADY ON FEET WHEN UP AND ABOUT IN HIS ROOM AND HALLWAYS. CL TO UPPER LT CHEST DC'D WITHOUT COMPLICATIONS, DRESSING APPLIED, CLEAN DRY AND INTACT UPON DISCHARGE. LUNGS CLEAR AND SLIGHTLY DIMINISHED IN THE BASES ABDOMNE SOFT AND NONTENDER WITH PRESENT BOWEL SOUNDS. PULSES STRONG HE DOES HAVE 1-2+ EDEMA IN HIS LOWER EXTREMITIES. INCISION TO MID STERNUM SCABBED DRY AND INTACT WITHOUT DRAINAGE, REDDNESS OR SWELLING. CHEST TUBE SITES COVERED WITH GAUZE ALSO CLEAN DRY AND INTACT. RT LEG HARVEST SITES SUTURED NO DRAINAGE REDDNESS OR EDEMA. PRESCRIPTIONS, MEDICATIONS, APPOINTMENTS, FOLLOW UP CARE, WOUND CARE, AND ACTIVITY ALL WENT OVER WITH PT AND SON, BOTH VERBALIZED UNDERSTANDING. W/C TO FRONT WEST TOWER LOBBY DOOR FOR DC TO HOME.
== END 2016-10-25 12:55 | disposition disaster alternative care site (69) | DRG 233 ==
LOC: GMED 23:35 → GPCU 23:50 → EDSTATUS 23:50 → GPCU 10-17 01:47 → GICU 10-18 10:10 → GPCU 10-20 16:20
PROVIDERS: Emergency Medicine; Family Medicine; Internal Medicine Nephrology; Nurse Practitioner; Thoracic Surgery (Cardiothoracic Vascular Surgery); ADMIT Internal Medicine
PROC: 4A023N7 Measurement of Cardiac Sampling and Pressure, Left Heart, Percutaneous Approach (ICD-10-PCS; 2016-10-17)
PROC: B2111ZZ Fluoroscopy of Multiple Coronary Arteries using Low Osmolar Contrast (ICD-10-PCS; 2016-10-17)
PROC: B24BZZ4 Ultrasonography of Heart with Aorta, Transesophageal (ICD-10-PCS; principal; 2016-10-19)
PROC: 02100Z9 Bypass Coronary Artery, One Artery from Left Internal Mammary, Open Approach (ICD-10-PCS; principal; 2016-10-19)
PROC: 5A1221Z Performance of Cardiac Output, Continuous (ICD-10-PCS; principal; 2016-10-19)
PROC: 06BP4ZZ Excision of Right Saphenous Vein, Percutaneous Endoscopic Approach (ICD-10-PCS; principal; 2016-10-19)
PROC: 021209W Bypass Coronary Artery, Three Arteries from Aorta with Autologous Venous Tissue, Open Approach (ICD-10-PCS; principal; 2016-10-19)
DX: I21.4 Non-ST elevation (NSTEMI) myocardial infarction (principal); J96.01 Acute respiratory failure with hypoxia; N18.4 Chronic kidney disease, stage 4 (severe); N17.9 Acute kidney failure, unspecified; C64.2 Malignant neoplasm of left kidney, except renal pelvis; I25.10 Atherosclerotic heart disease of native coronary artery without angina pectoris; I25.2 Old myocardial infarction; Z85.528 Personal history of other malignant neoplasm of kidney; Z90.5 Acquired absence of kidney; I71.2 Thoracic aortic aneurysm, without rupture; I44.0 Atrioventricular block, first degree; Z87.891 Personal history of nicotine dependence; I25.84 Coronary atherosclerosis due to calcified coronary lesion; R33.9 Retention of urine, unspecified; I12.9 Hypertensive chronic kidney disease with stage 1 through stage 4 chronic kidney disease, or unspecified chronic kidney disease; R20.0 Anesthesia of skin; K59.00 Constipation, unspecified; Z23 Encounter for immunization
CPT/HCPCS: C1751; C1760; G0378; J0171; J0282; J0690; J1170; J1644; J1650; J1885; J1940; J2060; J2150; J2250; J2270; J2405; J2440; J2720; J3475; J3480; J3490; J7030; J7040; J7050; J7060; J7121; P9045; P9047; Q9957

== ENCOUNTER → 2016-11-01 | Outpatient (CLI) | payer MEDICARE, BC ==
[~2016-11-01] MED LIST changes: +ASPIRIN LO-DOSE81 MG PO; +CORDARONE,PACE200 MG PO; +FLUZONE QU IM; +NITROSTAT0.4 MG SL; +NORCO 5-325 TA1 EACH PO; +TOPROL XL25 MG PO; +TRIAMCINOLONE454 GM; +TYLENOL EXTRA500 MG; +Z-PAK250 MG
[2016-11-01 14:56] LABS: ALBUMIN 3.4 gm/dL (3.5-5.0); ANION GAP 12.9 (10.0-19.0); CALCIUM 8.4 mg/dL (8.5-10.5); MAGNESIUM 2.1 mg/dL (1.3-2.6); PHOSPHORUS 3.7 mg/dL (2.5-4.9); POTASSIUM 4.9 mMol/L (3.7-5.1)
== END | disposition disaster alternative care site (69) ==
LOC: LCNC 14:13
PROVIDERS: Internal Medicine Interventional Cardiology
DX: R42 Dizziness and giddiness (principal)

== ENCOUNTER → 2016-11-09 | Outpatient (CLI) | payer MEDICARE, BC ==
[2016-11-09 14:22] LABS: BASOPHIL # 0.1 K/uL (0.0-0.2); BASOPHIL % 1.2 %; EOSINOPHIL # 0.4 K/uL (0.0-0.5); HEMATOCRIT 37.1 % (33.0-50.0); HEMOGLOBIN 11.9 g/dL (11.0-16.0); IMMATURE GRANULOCYTE % 0.6 %; LYMPHOCYTE % 14.9 %; MCH 29.5 pg (27.0-34.0); MCHC 32.1 gm/dL (32.0-36.5); MCV 91.8 fl (83.0-98.0); MONOCYTE # 0.5 K/uL (0.0-1.0); MPV 9.5 fl (9.4-12.4); NEUTROPHIL # (ANC) 4.6 K/uL (1.4-9.0); NEUTROPHIL % 69.3 %; NRBC % 0 /100WBC (0-0.00); RBC 4.04 M/uL (3.50-5.50); RDW-CV 14.9 % (11.9-14.6); WBC 6.7 K/uL (4.0-11.0)
[2016-11-09 14:26] LABS: PLATELET COUNT 265 K/uL (150-450)
[2016-11-09 14:43] LABS: ALBUMIN 3.2 gm/dL (3.5-5.0); ANION GAP 13.5 (10.0-19.0); POTASSIUM 4.5 mMol/L (3.7-5.1); TOTAL BILIRUBIN 0.3 mg/dL (0.0-1.5); TOTAL PROTEIN 6.8 g/dL (6.0-8.4)
== END | disposition disaster alternative care site (69) ==
LOC: LNHI 14:16
PROVIDERS: Nurse Practitioner Women's Health
DX: I25.10 Atherosclerotic heart disease of native coronary artery without angina pectoris (principal); R53.83 Other fatigue

== ENCOUNTER → 2016-11-16 | Outpatient (CLI) | payer MEDICARE, BC ==
--- NOTE | ~2016-11-16 | ECHO ---
Transthoracic Echocardiography Report (TTE) Demographics Patient Name WINTER DYE Date of Study 11/16/2016 Patient Number [id number] Visit Number [id number] Date of 1935 Room Number Accession Number [id number] Gender Male Age 81 year(s) Referring Benjy Parikh MD Compressor Station Operator John Soliz Physician Bill EWING Physician Interpreting Benjy Parikh MD Roll Scale Man Physician Supervising Ordering Physician Benjy Parikh MD, MD/MLP Nurse Stress Care Process Manager Conclusions Contractility Score Summary Normal Left Ventricular contractility was noted. Summary The estimated left ventricular ejection fraction is 55%. The left ventricle is mildly dilated . Mild concentric left ventricular hypertrophy. Diastolic assessment reveals Grade I diastolic dysfunction. Mildly reduced right ventricular function. The left atrium is severely dilated by LA volume index measurement. The right atrium is mildly dilated. IVC measures 2.23 cm with inspiratory collapse. Dilated IVC with poor inspiratory collapse consistent with elevated RA pressure. The aortic root appears severely dilated. The maximum diameter measures 4.3 cm. The ascending aorta appears severely dilated. The maximum diameter measures 4.3 cm. Procedure Type of Study TTE procedure:2D Echocardiogram, M-Mode, Doppler , Color Doppler. Procedure Date Date: 11/16/2016 Start: 02:05 PM Study Location: Echo Lab Technical Quality: Adequate visualization Indications:Ischemic Cardiomyopathy. Appropriate Use Criteria: 9 Patient Status: Routine HR: 60 bpm BP: 153/76 mmHg Allergies - Other:(Fentanyl). M-Mode/2D Measurements LV Diastolic Dimension: 6.25 cm LV Systolic Dimension: 3.62 cm LV Septum Diastolic: 1.04 cm LV PW Diastolic: 1.02 cm AO Root Dimension: 4.3 cm Cardiac Output: 5.97 l/min LA Dimension: 4.7 cm EF Estimated: 55 % LVOT: 2.2 cm LVOT VTI: 26.2 cm RV Base: 1.89 cm LV Stroke volume: 99.54 ml RV Length: 7.63 cm TAPSE: 0.73 cm TDI-S': 6.69 cm/s Doppler Measurements AV Peak Velocity: 1.25 m/s MV Peak E-Wave: 0.56 m/s AV Peak Gradient: 6.25 mmHg MV Peak A-Wave: 0.93 m/s AV Mean Gradient: 3 mmHg MV E/A Ratio: 0.6 LVOT Peak Velocity: 1.29 m/s MV P1/2t: 59 msec TR Gradient:4.41 mmHg PV Peak Velocity: 0.91 m/s Estimated RAP:8 mmHg PV Peak Gradient: 3.31 mmHg Estimated RVSP: 12 mmHg Estimated PASP: 12.41 mmHg E' Septal Velocity: 0.07 m/s A' Septal Velocity: 0.12 m/s E' Lateral Velocity: 0.08 m/s A' Lateral Velocity: 0.12 m/s Findings Left Ventricle The left ventricle is mildly dilated . Mild concentric left ventricular hypertrophy. Diastolic assessment reveals Grade I diastolic dysfunction. Right Ventricle Mildly reduced right ventricular function. Left Atrium The left atrium is moderately dilated. Right Atrium The right atrium is mildly dilated. IVC measures 2.23 cm with inspiratory collapse. Dilated IVC with poor inspiratory collapse consistent with elevated RA pressure. Mitral Valve Mild mitral annular calcification. Mild calcification of the mitral valve. Aortic Valve Normal aortic valve structure and function. Tricuspid Valve Trivial tricuspid regurgitation by color Doppler. Pulmonic Valve Normal pulmonic valve structure and function. Pericardial Effusion No evidence of pericardial effusion. Miscellaneous The aortic root appears moderately dilated. The maximum diameter measures 4.3 cm. Pleural Effusion No evidence of pleural effusion. Contractility Score LV regional wall motion:(0-Non visualized 1-Normal 2-Hypokinesis 3-Akinesis 4-Dyskinesis 5-Aneurysm) Signature dtt: Jl Burleson (cardio) dtd: 11/16/16 [id number] Physician Self Edit
== END | disposition disaster alternative care site (69) ==
LOC: GCAR 13:47
DX: I25.5 Ischemic cardiomyopathy (principal); I51.7 Cardiomegaly

== ENCOUNTER → 2016-11-29 | Day surgery (SDC) | payer MEDICARE, BC ==
[~2016-11-29] VITALS: Ht 170.2 cm; Wt 116.2 kg
--- NOTE | ~2016-11-29 | OR ---
PATIENT'S NAME: WINTER DYE [facility] AGE: 81 Y [address] ROOM: [place] [address] LOCATION: [facility] ADMIT DATE: 11/29/2016 OR/Procedure Report DISCHARGE DATE: FAMILY PHYSICIAN: Cain Burch MD ATTENDING PHYSICIAN: Clinton Paz SURGEON: Clintno Paz MD LEAD INJECTION MOLD TECHNICIAN: DATE OF PROCEDURE: 11/29/2016 PREOPERATIVE DIAGNOSES: 1. Left renal cell carcinoma - nonoperative. 2. History of right renal cell carcinoma, status post right radical nephrectomy. 3. Chronic renal insufficiency. 4. Coronary artery disease. 5. Shortness of breath. POSTOPERATIVE DIAGNOSES: 1. Left renal cell carcinoma - nonoperative. 2. History of right renal cell carcinoma, status post right radical nephrectomy. 3. Chronic renal insufficiency. 4. Coronary artery disease. 5. Shortness of breath. PROCEDURES PERFORMED: 1. Cystoscopy and left retrograde. 2. Left ureteral stent placement. ANESTHESIA: Sedation. INDICATIONS: This is an 81-year-old gentleman with the above noted issues. He had developed acute on chronic renal failure. The mass effect from his known left renal cell carcinoma was obstructing him. He had undergone stent placement. That improved his renal function. When I saw him in September, he had a creatinine of 1.8 with a GFR of 36. It has remained stable with a creatinine of 1.8 and a GFR of 36 as of today. He is tolerating his stent fine. He has had interim issues with coronary artery disease. He had a bypass. He presented at this time for a cystoscopy and stent change. PROCEDURE: Having obtained his informed consent, the patient was taken to the Operating Room. He was prepped and draped sterilely and in a lithotomy position. IV sedation was administered. A 21-Emirati cystoscope was assembled, and guided into the urethra. The course of the urethra was unremarkable back to the prostate. It demonstrated trilobar hypertrophy. He PATIENT'S NAME: WINTER DYE [facility] AGE: 81 Y [address] ROOM: [place] [address] LOCATION: [facility] ADMIT DATE: 11/29/2016 OR/Procedure Report DISCHARGE DATE: FAMILY PHYSICIAN: Cain Burch MD ATTENDING PHYSICIAN: Clinton Paz was doing fine from a voiding standpoint. Moving onto the bladder, he has a left ureteral stent visible. The right side is not effluxing secondary to his remote radical nephrectomy. There were no mucosal lesions. Preliminary survey reveals the stent in good position. It bypasses the mass effect at the UPJ. I pulled the stent out and passed a wire. Over that wire, I passed a retrograde catheter. Contrast was instilled. It filled out his collecting system nicely. We can see the mass effect. I want to be able to get the stent in the same position. It has not stirred up any significant bleeding, and has kept him drained. With the retrograde obtained, I passed a wire. With some manipulation, I got beyond the mass effect and into the same position laterally. Over that, I passed the same 4.8 multi-length Contour stent. We had a nice placement cystoscopically and fluoroscopically. The bladder was drained and the case was concluded. He tolerated the procedure well. BLOOD LOSS: Negligible. SPECIMEN REMOVED: No specimens were sent. POSTOPERATIVE CONDITION: The patient returned to the outpatient recovery awake and in stable condition. FOLLOWUP PLAN: I will see him back in three months. He will continue his followup with his other providers. CLINTON PAZ MD SF[facility]/modl /[id number] CC: MD Kelsi Donovan PA M Imtaiz Islam, MD d: 11/29/16 2115 t: 11/30/16 1457, OPERATIVE SUMMARY
[2016-11-29 11:21] LABS: BASOPHIL # 0.1 K/uL (0.0-0.2); BASOPHIL % 0.8 %; EOSINOPHIL # 0.3 K/uL (0.0-0.5); EOSINOPHIL % 4.4 %; HEMATOCRIT 42.5 % (33.0-50.0); HEMOGLOBIN 13.6 g/dL (11.0-16.0); IMMATURE GRANULOCYTE % 0.5 %; LYMPHOCYTE # 1.1 K/uL (0.8-4.0); LYMPHOCYTE % 18.9 %; MCH 29.2 pg (27.0-34.0); MCV 91.2 fl (83.0-98.0); MONOCYTE # 0.6 K/uL (0.0-1.0); MONOCYTE % 10.1 %; MPV 9.8 fl (9.4-12.4); NEUTROPHIL # (ANC) 3.9 K/uL (1.4-9.0); NEUTROPHIL % 65.3 %; NRBC % 0 /100WBC (0-0.00); PLATELET COUNT 226 K/uL (150-450); RBC 4.66 M/uL (3.50-5.50); RDW-CV 14.6 % (11.9-14.6); WBC 5.9 K/uL (4.0-11.0)
[2016-11-29 11:35] LABS: ALBUMIN 3.7 gm/dL (3.5-5.0); ANION GAP 10.5 (10.0-19.0); CALCIUM 8.5 mg/dL (8.5-10.5); CREATININE 1.8 mg/dL (0.6-1.3); POTASSIUM 4.5 mMol/L (3.7-5.1); TOTAL PROTEIN 7.2 g/dL (6.0-8.4)
[2016-11-29 11:42] LABS: TOTAL BILIRUBIN 0.4 mg/dL (0.0-1.5)
== END | disposition disaster alternative care site (69) ==
LOC: GPOC 11-22 11:00 → GSDC 10:47
PROVIDERS: Urology
PROC: BT1FZZZ Fluoroscopy of Left Kidney, Ureter and Bladder (ICD-10-PCS; principal; 2016-11-29)
PROC: 0T778DZ Dilation of Left Ureter with Intraluminal Device, Via Natural or Artificial Opening Endoscopic (ICD-10-PCS; 2016-11-29)
DX: C64.2 Malignant neoplasm of left kidney, except renal pelvis (principal); N28.9 Disorder of kidney and ureter, unspecified; N40.1 Benign prostatic hyperplasia with lower urinary tract symptoms; N13.8 Other obstructive and reflux uropathy; I25.10 Atherosclerotic heart disease of native coronary artery without angina pectoris; I25.5 Ischemic cardiomyopathy; I25.2 Old myocardial infarction; R06.02 Shortness of breath; N18.3 Chronic kidney disease, stage 3 (moderate); R31.0 Gross hematuria; E78.5 Hyperlipidemia, unspecified; E66.01 Morbid (severe) obesity due to excess calories; Z68.41 Body mass index [BMI] 40.0-44.9, adult; Z85.528 Personal history of other malignant neoplasm of kidney; Z90.5 Acquired absence of kidney; Z87.891 Personal history of nicotine dependence; Z98.890 Other specified postprocedural states; Z88.8 Allergy status to other drugs, medicaments and biological substances
CPT/HCPCS: C1769; C2617; J1956; J7120